=== PATIENT | female | born 1975 | race Caucasian/White ===

== ENCOUNTER 2024-07-07 14:11 | Outpatient (AMB) | payer OTHER, SELFPAY ==
--- NOTE | 2024-07-07 14:42 | A.OFFPC_ITS ---
Vital Signs 07/07/24 14:54 Height 5 ft 4 in Weight 277 lb BMI 47.5 BP 120/70 Blood Pressure Location Rt brachial Position Sitting Respiration 16 Pulse 98 Pulse Source Pulse Oximeter Temp 97.7 F Temp Source Tympanic Pulse Oximetry (%) 95 Oxygen Delivery Method Room Air Intake Visit Reasons: REGISTER OF WILLS-Physical Exam Intake Note: establish care Allergies No Known Allergies Allergy (Verified 07/07/24 14:44) Tobacco use date assessed: 07/07/24 Dental Screening Dental Screen Date: 07/07/24 Did you have a dental visit in the last 12 months?: Yes Did you have a dental problem in the last 6 months where you did not have access to dental care?: No Was dental information given to patient?: Patient has dentist HPI HPI Comments History of Present Illness Details This is a 48-year-old female with a past medical history of type 2 diabetes, melanoma, hypertension, hyperlipidemia and hypothyroidism presenting for follow up. She transferred from [facility]. Type 2 diabetes-this was diagnosed in 2013. Her most recent hemoglobin A1c was around 7.1% she says. She was evaluated by endocrinology. She met with the paraeducator. She has microalbuminuria. She is on an EAMON inhibitor. Her current regimen is Farxiga 10 mg, glipizide XL 10 mg twice daily, metformin 1000 mg twice daily and Ozempic once weekly, but she wants to switch back to Mounjaro. She was switched to Ozempic because it was not available over the summer. She feels her blood sugars and weight loss for better on Mounjaro. Hypothyroidism-taking levothyroxine 50 mg once daily. Hypertension-taking lisinopril 30 mg daily. Hydrochlorothiazide discontinued due to hypotension and hypercalcemia. Hyperlipidemia-taking Crestor 40 mg daily. ROS: Constitutional: No unexplained weight loss, fever, chills, fatigue or night sweats. Respiratory: No shortness of breath, cough or sputum production. Cardiovascular: No chest pain, chest pressure or chest discomfort. No pa lpitations or pedal edema. Gastrointestinal: No anorexia, nausea, vomiting or diarrhea. No abdominal pain or blood in stool. Neurologic: No headache, dizziness, syncope Endocrine: No cold or heat intolerance. No polyuria or polydipsia. Physical exam: Constitutional: Alert, in no distress. Respiratory: Clear to auscultation. Cardiovascular: S1 S2 regular. No murmurs Extremities: Warm and well perfused. No clubbing, cyanosis or edema Psychiatric: Normal mood and affect [facility] Medical History (Updated 07/08/24 @ 09:22 by JOEL Mendoza) Hypothyroidism Morbid obesity Microalbuminuria Essential hypertension Mixed hyperlipidemia History of melanoma Hepatic steatosis Screening for cardiovascular condition Type 2 diabetes mellitus Surgical History (Updated 07/08/24 @ 09:17 by JOEL Mendoza) History of melanoma excision Family History (Updated 07/08/24 @ 09:18 by JOEL Mendoza) Maternal Grandfather Lung cancer Mother Type 2 diabetes mellitus Social History (Updated 07/07/24 @ 14:50 by Huong Kraft MA) Housing: House Patient Tobacco Use Status: Never used Tobacco e-Cigarette/Vaping Use: Never Used Second Hand Smoke Exposure: No service: No Current occupational status: employed 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 1. Little interest or pleasure in doing things: not at all 2. Feeling down, depressed, or hopeless: not at all 3. Trouble falling or staying asleep, or sleeping too much: not at all 4. Feeling tired or having little energy: several days 5. Poor appetite or overeating: not at all 6. Feeling bad about yourself - or that you are a failure or have let yourself or your family down: not at all 7. Trouble concentrating on things, such as reading the newspaper or watching television: not at all 8. Moving or speaking so slowly that other people could have noticed. Or the opposite - being so fidgety or restless that you have been moving around a lot more than usual: not at all 9. Thoughts that you would be better off or of hurting yourself in some way: not at all Total score: 1 Depression Screening Interpretation: Negative Depression Screening Done: Yes 48723 - PHQ-9 Billing: Yes Source: Developed by Drs. Humphrey Hunter, Swati Morgan, Haja Ellis and colleagues, with an educational mora from [employer]. Thrive Questionnaire Date Thrive assessed: 07/07/24 I am a: Patient What is your living situation today?: I have a steady place to live Within the past 12 months, did the food you bought not last and you didn't have the money to get more?: Never true Within the past 12 months, did you worry whether your food would run out before you got money to buy more?: Never true Do you have trouble paying for medicines?: No Do you have trouble getting transportation to medical appointments?: No Do you have trouble paying your heating and electricity bill?: No Do you have trouble taking care of your child, family member or friend?: No Do you have trouble with day-to-day activities such as bathing, preparing meals, shopping, managing finances, etc.?: No Are you currently unemployed and looking for a job?: No Are you interested in more education?: No Please select the resources that you would like help with: None Currently or been in a relationship where the following occur: No concerns reported THRIVE Score: 0 AUDIT C Alcohol Use Questionnaire (AUDIT-C) 1. How often do you have a drink containing alcohol?: Never 3. How often do you have six or more drinks on one occasion?: Never Total Score: 0 Score Reviewed/Action Taken: Yes YOUSUF-7 AMB Questionnaire YOUSUF-7 Date YOUSUF - 7 assessed: 07/07/24 Feeling nervous, anxious, or on edge: 0 = Not at all Not being able to stop or control worryin = Not at all Worrying too much about different things: 0 = Not at all Trouble relaxin = Not at all Being so restless that it is hard to sit still: 0 = Not at all Becoming easily annoyed or irritable: 0 = Not at all Feeling afraid as if something awful might happen: 0 = Not at all Total YOUSUF-7 score (0-4 normal; 5-9 mild; 10-14 moderate; 15-21 severe): 0 Source: Developed by Drs. Humphrey Hunter, Swati Morgan, Haja Ellis and colleagues, with an educational mora from [employer]. YOUSUF-7 Assessment Billing YOUSUF-7 Assessment Tool: YOUSUF-7 Assessment [id number] Physical exam (Primary Care) Vital Signs: Last Vital Signs Temp 97.7 F 07/07/24 14:54 Pulse 98 07/07/24 14:54 Resp 16 07/07/24 14:54 BP 120/70 07/07/24 14:54 Pulse Ox 95 07/07/24 14:54 Oxygen Delivery Method Room Air 07/07/24 14:54 BMI result Body Mass Index 47.5 Tobacco/Smoking Status: Tobacco use Status Tobacco use date assessed 07/07/24 07/07/24 14:57 Patient Tobacco Use Status Never used Tobacco 07/07/24 14:57 e-Cigarette/Vaping Use Never Used 07/07/24 14:57 PHQ-9: PHQ-9 Score PHQ-9: Total score 1 07/07/24 15:32 Depression Screening Interpretation: Negative Thrive Assessment: Date of Thrive Assessment Date Thrive assessed 07/07/24 07/07/24 14:57 Currently or been in a relationship where the following occur: No concerns reported Assessment and Plan Assessment & Plan (1) Type 2 diabetes mellitus: Code(s): E11.9 - Type 2 diabetes mellitus without complications Qualifiers: Diabetes mellitus superintendent terminal insulin use: without care home use Diabetes mellitus complication status: with kidney complications Diabetes mellitus complication detail: with diabetic microalbuminuria Qualified Code(s): E11.29 - Type 2 diabetes mellitus with other diabetic kidney complication; R80.9 - Protei watson, unspecified (2) Microalbuminuria: Code(s): R80.9 - Proteinuria, unspecified (3) Essential hypertension: Code(s): I10 - Essential (primary) hypertension (4) Mixed hyperlipidemia: Code(s): E78.2 - Mixed hyperlipidemia (5) Morbid obesity: Code(s): E66.01 - Morbid (severe) obesity due to excess calories (6) Hypothyroidism: Code(s): E03.9 - Hypothyroidism, unspecified Qualifiers: Hypothyroidism type: due to [place]'s thyroiditis Qualified Code(s): E06.3 - Autoimmune thyroiditis Plan Type 2 diabetes Discontinue Ozempic and switch back to Mounjaro. She will start at 5 mg weekly and titrate again based on response and tolerability. Check hemoglobin A1c. Continue efforts at lifestyle modifications. Continue other medications. Microalbuminuria Discussed importance of diabetic control and managing hypertension. Continue EAMON inhibitor. Hypertension Controlled. Continue current regimen. Recommended low-sodium diet and avoidance of caffeine. Weight loss encouraged. Hyperlipidemia Check fasting lipid profile. Continue rosuvastatin 40 mg. Hypothyroidism Continue levothyroxine. Check TSH. Morbid obesity Lifestyle modifications reviewed in detail. Switching to Mounjaro. Patient had more weight loss with this medication. Follow up in 4 months for CPE. Orders: Orders Lipid Panel 07/07/24 E11.9 - Type 2 diabetes mellitus without complications, Z13.6 - Encounter for screening for cardiovascular disorders Hemoglobin A1c 07/07/24 E11.9 - Type 2 diabetes mellitus without complications, Z13.6 - Encounter for screening for cardiovascular disorders Comprehensive Met. Panel Today E11.9 - Type 2 diabetes mellitus without complications, I10 - Essential (primary) hypertension, K76.0 - Fatty (change of) liver, not elsewhere classified TSH reflex Free T4 07/07/24 E11.9 - Type 2 diabetes mellitus without compli cations, E66.9 - Obesity, unspecified, Z13.6 - Encounter for screening for cardiovascular disorders Referrals HEAD LOFT WORKER Referral Z01.419 - Encounter for gynecological examination (general) (routine) without abnormal findings Medications: New tirzepatide (Mounjaro) 5 mg (0.5 mL) subcut QWEEK 2 mL 0RF levothyroxine (Synthroid) 50 mcg PO DAILY 90 tabs 3RF lisinopril 30 mg PO DAILY 90 tabs 3RF rosuvastatin 40 mg PO DAILY 90 days 90 tabs 3RF dapagliflozin propanediol (Farxiga) 10 mg PO DAILY 90 tabs 3RF glipizide ER 10 mg PO BID 90 tabs 3RF metformin 1,000 mg PO BID 90 days 180 tabs 3RF Coding Level of Care Code Est Pt Level 4 (65670) Complex EM visit Add On G2211 Diagnoses Type 2 diabetes mellitus with diabetic microalbuminuria, without long-term current use of insulin E11.29; R80.9 Diabetes mellitus care home insulin use: without superintendent terminal use Diabetes mellitus complication status: with kidney complications Diabetes mellitus complication detail: with diabetic microalbuminuria Microalbuminuria R80.9 Essential hypertension I10 Mixed hyperlipidemia E78.2 Morbid obesity E66.01 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
[2024-07-07 14:54] VITALS: BP 120/70; PULSE 98; RESP 16; TEMP 36.5; O2SAT 95; BMI 47.5
== END 2024-07-07 15:36 | disposition home or self-care (01) ==
PROVIDERS: Visit Provider Physician Assistant Medical
DX: E11.29 Type 2 diabetes mellitus with other diabetic kidney complication (principal); E66.01 Morbid (severe) obesity due to excess calories; Z68.42 Body mass index [BMI] 45.0-49.9, adult; R80.9 Proteinuria, unspecified; I10 Essential (primary) hypertension; E78.2 Mixed hyperlipidemia; E06.3 Autoimmune thyroiditis
CPT/HCPCS: 99214

== ENCOUNTER 2024-10-28 08:28 | Outpatient (REF) | payer OTHER, SELFPAY ==
[2024-10-28 11:38] LABS: Estimated Average Glucose 200 mg/dL; Hemoglobin A1C 263.1317 umol/L; Hemoglobin A1c % 8.6 % (<6.0); Total Hemoglobin (HGBA1C) 3728.2816 umol/L
[2024-10-28 12:19] LABS: Alanine Aminotransferase 27 U/L (0-31); Albumin Level 4.2 g/dL (3.5-5.0); Alkaline Phosphatase 64 U/L (39-117); Anion Gap 13 (12-20); Aspartate Amino Transferase 27 U/L (5-31); Bilirubin Total 0.4 mg/dL (0.0-1.0); Blood Urea Nitrogen 17 mg/dL (9-16); Calcium 10.1 mg/dL (8.4-10.2); Carbon Dioxide 25 mmol/L (22-29); Chloride 103 mmol/L (96-108); Cholesterol 177 mg/dL (<200); Estimated Glomerular Filt Rate > 60; Glucose Random 204 mg/dL (60-115); HDL Cholesterol 41 mg/dL (>40); LDL Cholesterol Calculated 71 mg/dL (<100); Potassium 4.3 mmol/L (3.3-5.1); Sodium 137 mmol/L (135-145); TSH reflex Free T4 3.06 uIU/mL (0.32-4.0); Total Protein 7.6 g/dL (6.5-8.0); Triglycerides 325 mg/dL (<150)
== END 2024-10-28 08:29 | disposition home or self-care (01) ==
LOC: HO.WFDLDS 08:28
PROVIDERS: Visit Provider Physician Assistant Medical
DX: E11.9 Type 2 diabetes mellitus without complications (principal); Z13.6 Encounter for screening for cardiovascular disorders; E66.9 Obesity, unspecified; K76.0 Fatty (change of) liver, not elsewhere classified; I10 Essential (primary) hypertension
CPT/HCPCS: 36415; 80053; 80061; 83036; 84443

== ENCOUNTER 2024-11-03 15:29 | Outpatient (AMB) | payer OTHER, SELFPAY ==
--- NOTE | 2024-11-03 15:51 | A.OFFPC_ITS ---
Vital Signs 11/03/24 15:59 Height 5 ft 4 in Weight 278 lb 1 oz BMI 47.7 BP 127/83 Blood Pressure Location Rt brachial Position Sitting Pulse 91 Pulse Source Pulse Oximeter Pulse Oximetry (%) 92 Oxygen Delivery Method Room Air Intake Visit Reasons: cpe Intake Note: Physical Coin Machine Assembler Required: No Allergies No Known Allergies Allergy (Verified 11/03/24 15:51) Tobacco use date assessed: 07/07/24 Dental Screening Dental Screen Date: 07/07/24 HPI HPI Comments History of Present Illness Details This is a 49-year-old female with a past medical history of type 2 diabetes, melanoma, hypertension, hyperlipidemia and hypothyroidism presenting for a physical exam. Type 2 diabetes-this was diagnosed in 2013. Her hemoglobin A1c recently is 8.6%. She was evaluated by endocrinology. She met with the s iron worker. She has microalbuminuria. She is on an EAMON inhibitor. Her current regimen is F arxiga 10 mg, glipizide XL 10 mg twice daily, metformin 1000 mg twice daily and Mounjaro which we have been titrating. She wants to increase from 12.5-15 mg weekly. She denies side effects. Hypothyroidism-taking levothyroxine 50 mg once daily. Recent TSH normal. Hypertension-taking lisinopril 30 mg daily. Hydrochlorothiazide discontinued due to hypotension and hypercalcemia. Hyperlipidemia-taking Crestor 40 mg daily. LDL at goal. Triglycerides elevated at 335 which makes sense with elevation in A1c. She has not had her screening colonoscopy. She is referred to [facility] at her request for this. She has an appointment for her gynecological exam on 12/12/[address] Estrada. She accepts referral for mammogram at [facility]. She goes to [facility] for skin surveillance. No recurrence of skin cancer to date. She is up-to-date with the flu and COVID vaccines through her pharmacy. She received the PPSV23 vaccine in 2013. Tdap is overdue and is administered today. ROS: Constitutional: No unexplained weight loss, fever, chills, fatigue or night sweats. Eyes: No vision changes, blurry vision, double vision, eye pain, eye redness, eye discharge. ENT: No hearing loss, sneezing, congestion, runny nose or sore throat. Respiratory: No shortness of breath, cough or sputum production. Cardiovascular: No chest pain, chest pressure or chest discomfort. No palpitations or pedal edema. Gastrointestinal: No anorexia, nausea, vomiting or diarrhea. No abdominal pain or blood in stool. Genitourinary: No dysuria, hematuria, urinary frequency. Neurologic: No headache, dizziness, syncope, unilateral weakness, ataxia, numbness or tingling in the extremities. Musculoskeletal: No muscle pain, back pain, joint pain or swelling. Hematologic/Lymphatics: No bleeding or bruising. No painful lymph nodes. Skin: No rash, no changing moles or new lesions Endocrine: No cold or heat intolerance. No polyuria or polydipsia. Psychiatric: No depression or anxiety. No SI/HI. Physical exam: Constitutional: Alert, in no distress. Head: Normocephalic. Eyes: Pupils are equal, round and reactive to light. Extraocular muscles intact. Ear, Nose and Throat: Canals clear. TMs normal. Normal nasal mucosa. No nasal discharge. No oral lesions. Neck: Supple, Full range of motion. No lymphadenopathy. No palpable thyroid masses. Respiratory: Clear to auscultation. Cardiovascular: S1 S2 regular. No murmurs. Gastrointestinal: Abdomen soft, non-tender, non-distended. Normal bowel sounds. No palpable masses. Neurologic: No focal neurological deficits.Moves all extremities spontaneously. Sensation intact bilaterally. Skin: No rashes or lesions. Musculoskeletal: No gross deformities. Normal range of motion. Extremities: Warm and well perfused. No clubbing, cyanosis or edema. Psychiatric: Normal mood and affect [facility] Medical History (Updated 07/08/24 @ 09:22 by JOEL Mendoza) Hypothyroidism Morbid obesity Microalbuminuria Essential hypertension Mixed hyperlipidemia History of melanoma Hepatic steatosis Screening for cardiovascular condition Type 2 diabetes mellitus Surgical History (Updated 07/08/24 @ 09:17 by JOEL Mendoza) History of melanoma excision Family History (Updated 07/08/24 @ 09:18 by JOEL Mendoza) Maternal Grandfather Lung cancer Mother Type 2 diabetes mellitus Social History (Updated 07/07/24 @ 14:50 by RAEGAN Saleh) Housing: House Patient Tobacco Use Status: Never used Tobacco e-Cigarette/Vaping Use: Never Used Second Hand Smoke Exposure: No service: No Current occupational status: employed 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 1. Little interest or pleasure in doing things: not at all 2. Feeling down, depressed, or hopeless: not at all 3. Trouble falling or staying asleep, or sleeping too much: not at all 4. Feeling tired or having little energy: not at all 5. Poor appetite or overeating: not at all 6. Feeling bad about yourself - or that you are a failure or have let yourself or your family down: not at all 7. Trouble concentrating on things, such as reading the newspaper or watching television: not at all 8. Moving or speaking so slowly that other people could have noticed. Or the opposite - being so fidgety or restless that you have been moving around a lot more than usual: not at all 9. Thoughts that you would be better off or of hurting yourself in some way: not at all Total score: 0 Source: Developed by Drs. Humphrey Hunter, Swati Morgan, Haja Ellis and colleagues, with an educational mora from [employer]. Thrive Questionnaire Date Thrive assessed: 07/07/24 I am a: Patient What is your living situation today?: I have a steady place to live Within the past 12 months, did the food you bought not last and you didn't have the money to get more?: Never true Within the past 12 months, did you worry whether your food would run out before you got money to buy more?: Never true Do you have trouble paying for medicines?: No Do you have trouble getting transportation to medical appointments?: No Do you have trouble paying your heating and electricity bill?: No Do you have trouble taking care of your child, family member or friend?: No Do you have trouble with day-to-day activities such as bathing, preparing meals, shopping, managing finances, etc.?: No Are you currently unemployed and looking for a job?: No Are you interested in more education?: No Please select the resources that you would like help with: None Currently or been in a relationship where the following occur: No concerns reported THRIVE Score: 0 AUDIT C Alcohol Use Questionnaire (AUDIT-C) 1. How often do you have a drink containing alcohol?: Never 2. How many drinks containing alcohol do you have on a typical day when you are drinking?: 1 or 2 3. How often do you have six or more drinks on one occasion?: Never Total Score: 0 YOUSUF-7 AMB Questionnaire YOUSUF-7 Date YOUSUF - 7 assessed: 07/07/24 Feeling nervous, anxious, or on edge: 0 = Not at all Not being able to stop or control worryin = Not at all Worrying too much about different things: 0 = Not at all Trouble relaxin = Not at all Being so restless that it is hard to sit still: 0 = Not at all Becoming easily annoyed or irritable: 0 = Not at all Feeling afraid as if something awful might happen: 0 = Not at all Total YOUSUF-7 score (0-4 normal; 5-9 mild; 10-14 moderate; 15-21 severe): 0 Source: Developed by Drs. Humphrey Hunter, Swati Morgan, Haja Ellis and colleagues, with an educational mora from [employer]. Physical exam (Primary Care) Vital Signs: Last Vital Signs Pulse 91 11/03/24 15:59 BP 127/83 11/03/24 15:59 Pulse Ox 92 11/03/24 15:59 Oxygen Delivery Method Room Air 11/03/24 15:59 BMI result Body Mass Index 47.7 Tobacco/Smoking Status: Tobacco use Status Tobacco use date assessed 07/07/24 11/03/24 15:52 Patient Tobacco Use Status Never used Tobacco 11/03/24 15:52 e-Cigarette/Vaping Use Never Used 11/03/24 15:52 PHQ-9: PHQ-9 Score PHQ-9: Total score 0 11/03/24 16:23 Thrive Assessment: Date of Thrive Assessment Date Thrive assessed 07/07/24 11/03/24 15:52 Currently or been in a relationship where the following occur: No concerns reported Immunizations Boostrix Tdap 2.5 Lf unit-8 mcg-5 Lf/0.5 mL intramuscular syringe Performing Provider: JOEL Mendoza Performing Location: [facility] Administered by: Olive Yanes CMA on 11/03/24 16:53 Dose Route Admin Location Dispensed Lot Number Expiration Date [employer] 0.5 mL IM Left Deltoid 0.5 mL [id number] 01/14/27 29516-859-88 [employer] VIS Given Date VIS Provided VIS Publication Date 11/03/24 Single Vaccine 21 Eligibility Eligibility Date Funding Source Not [facility] Eligible 11/03/24 Private Coding Level of Care Code Est Pt Prev Care 40-64y(28486) Diagnoses Routine physical examination Z00.00 Mixed hyperlipidemia E78.2 Type 2 diabetes mellitus with diabetic microalbuminuria, without long-term current use of insulin E11.29; R80.9 Diabetes mellitus correction insulin use: without parts counterman use Diabetes mellitus complication status: with kidney complications Diabetes mellitus complication detail: with diabetic microalbuminuria Assessment & Plan Assessment & Plan (1) Routine physical examination: Code(s): Z00.00 - Encounter for general adult medical examination without abnormal findings (2) Mixed hyperlipidemia: Code(s): E78.2 - Mixed hyperlipidemia Category: Medical (3) Type 2 diabetes mellitus: Code(s): E11.9 - Type 2 diabetes mellitus without complications Category: Medical Qualifiers: Diabetes mellitus parts counterman insulin use: without correction use Diabetes mellitus complication status: with kidney complications Diabetes mellitus complication detail: with diabetic microalbuminuria Qualified Code(s): E11.29 - Type 2 diabetes mellitus with other diabetic kidney complication; R80.9 - Proteinuria, unspecified Plan Patient is seen today for a routine physical. As part of this visit we reviewed the following issues, which are considered and essential part of preventative health in this age group: - Breast Cancer screening - Annual Axle Polisher exam - Screening for colon cancer - Blood pressure screening - Cholesterol screening - Osteoporosis prevention including calcium/vitamin D intake, weight bearing exercise & smoking cessation - Nutritional and exercise counseling - Counseling of injury prevention including fire prevention, smoke alarms and seat belt usage - Screening for depression - Recommendations about immunizations - Recommendation of an eye exam - Screening for substance abuse Increase Mounjaro to 15 mg weekly. Continue all other medications. Follow up in 3 months for re-evaluation with labs. Orders: Orders MM screening mammo BI Today Z12.31 - Encounter for screening mammogram for malignant neoplasm of breast Hemoglobin A1c 3 Months E11.29 - Type 2 diabetes mellitus with other diabetic kidney complication, E11.9 - Type 2 diabetes mellitus without complications, R80.9 - Proteinuria, unspecified Lipid Panel 3 Months E11.29 - Type 2 diabetes mellitus with other diabetic k idney complication, E78.5 - Hyperlipidemia, unspecified, R80.9 - Proteinuria, unspecified TDaP Immunization Today Z23 - Encounter for immunization Referrals Gastroenterology Referral Z12.11 - Encounter for screening for malignant neoplasm of colon Medications: New tirzepatide (Mounjaro) 15 mg (0.5 mL) subcut QWEEK 2 mL 5RF Discontinued tirzepatide (Mounjaro) Discontinued Reason: Doctor's Order 12.5 mg (0.5 mL) subcut QWEEK 2 mL 0RF
[2024-11-03 15:59] VITALS: BP 127/83; PULSE 91; O2SAT 92; BMI 47.7
== END 2024-11-03 16:53 | disposition home or self-care (01) ==
PROVIDERS: Visit Provider Physician Assistant Medical
DX: Z00.00 Encounter for general adult medical examination without abnormal findings (principal); E78.2 Mixed hyperlipidemia; E11.29 Type 2 diabetes mellitus with other diabetic kidney complication; R80.9 Proteinuria, unspecified; Z23 Encounter for immunization

== ENCOUNTER → 2024-11-03 15:29 | Outpatient (BNVA) | payer OTHER, SELFPAY | PROVIDERS: Visit Provider Physician Assistant Medical | DX: Z00.00 Encounter for general adult medical examination without abnormal findings (principal); Z23 Encounter for immunization; E78.2 Mixed hyperlipidemia; E11.29 Type 2 diabetes mellitus with other diabetic kidney complication; R80.9 Proteinuria, unspecified | CPT/HCPCS: 90471; 90715; 96127 ==

== ENCOUNTER 2024-11-28 07:44 | Outpatient (REF) | payer OTHER, SELFPAY | END 2024-11-28 07:45 | disposition home or self-care (01) | LOC: HO.MAMMO 07:44 | PROVIDERS: PCP Physician Assistant Medical; Visit Provider Physician Assistant Medical | DX: Z12.31 Encounter for screening mammogram for malignant neoplasm of breast (principal) | CPT/HCPCS: 77063; 77067 ==

== ENCOUNTER → 2024-11-28 08:00 | Outpatient (BNV) | payer OTHER, SELFPAY | PROVIDERS: PCP Physician Assistant Medical; Visit Provider Internal Medicine | DX: Z12.31 Encounter for screening mammogram for malignant neoplasm of breast (principal) | CPT/HCPCS: 77063; 77067 ==

== ENCOUNTER → 2024-12-03 12:33 | Outpatient (BNV) | payer OTHER, SELFPAY | PROVIDERS: PCP Physician Assistant Medical; Visit Provider Internal Medicine Cardiovascular Disease | DX: I42.2 Other hypertrophic cardiomyopathy (principal); I51.89 Other ill-defined heart diseases | CPT/HCPCS: 93306 ==

== ENCOUNTER 2024-12-22 13:56 | Outpatient (REF) | payer OTHER, SELFPAY ==
[2024-12-22 17:40] LABS: Influenza A PCR POSITIVE (Negative); Influenza B PCR NEGATIVE (Negative); Resp Syncy Virus RNA Qual PCR NEGATIVE (Negative); SARS COV2 PCR INHOUSE NEGATIVE (Negative)
== END 2024-12-22 13:57 | disposition home or self-care (01) ==
LOC: HO.LNP 13:56
PROVIDERS: PCP Physician Assistant Medical; Visit Provider Nurse Practitioner Family
DX: J06.9 Acute upper respiratory infection, unspecified (principal); R05.1 Acute cough
CPT/HCPCS: 0241U

== ENCOUNTER 2024-12-22 13:56 | Outpatient (AMB) | payer OTHER, SELFPAY ==
[2024-12-22 14:10] VITALS: BP 128/78; PULSE 92; TEMP 36.8; O2SAT 93
--- NOTE | 2024-12-22 14:10 | AM.OFFWIN_ITS ---
Intake Vital Signs 12/22/24 14:10 Height 5 ft 4 in BP 128/78 Blood Pressure Location Lt brachial Position Sitting Pulse 92 Pulse Source Pulse Oximeter Temp 98.2 F Temp Source Oral Pulse Oximetry (%) 93 Intake Visit Reasons: EP Bronchitis? Patient Tobacco Use Status: Never used Tobacco Allergies No Known Allergies Allergy (Verified 12/22/24 14:10) Do you need a note to return to daycare/school/sports/work: Yes HPI HPI Comments History of Present Illness Details 49 y/o female patient who [facility] with c/o URI Symptoms since yesterday. Pt reports coughing, chest tightness and chest congestion. [facility] Medical History (Updated 12/22/24 @ 14:32 by Jeanne Wagner NP) Acute respiratory disease Grade I diastolic dysfunction Abnormal echocardiogram Hypothyroidism Morbid obesity Microalbuminuria Essential hypertension Mixed hyperlipidemia History of melanoma Hepatic steatosis Screening for cardiovascular condition Type 2 diabetes mellitus Surgical History (Updated 07/08/24 @ 09:17 by JOEL Mendoza) History of melanoma excision Family History (Updated 07/08/24 @ 09:18 by JOEL Mendoza) Maternal Grandfather Lung cancer Mother Type 2 diabetes mellitus Social History (Updated 07/07/24 @ 14:50 by Huong Kraft [facility] Housing: House Patient Tobacco Use Status: Never used Tobacco e-Cigarette/Vaping Use: Never Used Second Hand Smoke Exposure: No service: No Current occupational status: employed 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 Current occupational exposures/hazards: No Cognitive needs: No Hearing needs: No Vision needs: No Review of Systems Const All systems reviewed & are unremarkable except as noted in HPI and below Physical Exam Vital Signs: Last Vital Signs Temp 98.2 F 12/22/24 14:10 Pulse 92 12/22/24 14:10 BP 128/78 12/22/24 14:10 Pulse Ox 93 12/22/24 14:10 Const General: cooperative and no acute distress Nutritional Appearance: obese Orientation/consciousness: patient oriented x3 HEENT Head: Yes normocephalic Ears: external ears normal and TM abnormal obstructed by cerumen General nose exam: Nasal discharge present Face and sinus: Yes sinuses nontender Mouth: moist mucous membranes Throat: Yes uvula midline Resp Effort & Inspection: normal respiratory effort, able to speak in complete sentences, no audible wheezes and no cough Auscultation: clear to auscultation bilaterally, no crackles, no rales, no rhonchi and no wheezes Cardio Heart sounds: S1 normal heart sound present and S2 normal heart sound present Neuro General: patient oriented x3 Assessment & Plan Assessment & Plan (1) Acute respiratory disease: Code(s): J06.9 - Acute upper respiratory infection, unspecified Plan: Ordered SARs OTC cough/chest remedies Rest and hydrate well with warm fluids. (2) Cough: Code(s): R05.9 - Cough, unspecified Qualifiers: Cough type: acute Qualified Code(s): R05.1 - Acute cough Plan: Ordered SARs OTC cough/chest remedies Rest and hydrate well with warm fluids. Orders: Orders SARS-CoV2/FLU/RSV Today J06.9 - Acute upper respiratory infection, unspecified Medications: New benzonatate 100 mg PO TID 90 caps 0RF cough R05.1 - Acute cough Coding Level of Care Code Est Pt Level 4 (50492) Diagnoses Acute respiratory disease J06.9 Acute cough R05.1 Cough type: acute Time Spent (min) 20
--- OUTSIDE RECORDS SUMMARY | 2024-12-22 16:00 | XMS_ITS | Patient Health Record ---
Author Organization [employer] [facility] Address [address] [place] [address] Care Team Providers Care Stop Attacher Name Role Phone JAY RODRIGES PA-C Primary Care Provider Silva Engle Unavailable [phone] Allergies No Known Allergies Results Component Value Reference Range Notes PDF Report Reviewed date:12/16/2024 01:20:08 PM Interpretation: Performing Lab:[facility], [address], [address], [place], Phone - [phone], [facility] Notes/Report: Clinical Information:VAG/CERV [id number] LMP / Prev Treat...[id number] Dates / Results....2022 No. of containers..01 ThinPrep Vial [id number] IGP No Culture 30 Plus Reviewed date:12/16/2024 01:20:24 PM Interpretation: Performing Lab:[facility], [address], [address], [place], Phone - [phone], Director - [facility] Notes/Report: Clinical Information:VAG/CERV [id number] LMP / Prev Treat...[id number] Dates / Results....2022 No. of containers..01 ThinPrep Vial DIAGNOSIS: NEGATIVE FOR INTRAEPITHELIAL LESION OR MALIGNANCY. PREDOMINANCE OF COCCOBACILLI CONSISTENT WITH SHIFT IN VAGINAL GRISELDA IS PRESENT. Specimen adequacy: Satisfact ory for evaluation. No endocervical component is identified. Clinician provided ICD10: Z0 1.419 Performed by: Christopher pisano, Cavity Pump Operator ([facility]) . . Note: The Pap smear is a screening test designed to aid in the detection of premalignant and malignant conditions of the uterine cervix. It is not a diagnostic procedure and should not be used as the sole means of detecting cervical cancer. Both false-positive and false-negative reports do occur. . Test Methodology: This liquid based ThinPrep(R) pap test was screened with the use of an image guided system. HPV Aptima Negative Negative This nucleic acid amplification test detects fourteen high-risk HPV types (16,18,31,33,35,39,45,51,52,56,58 ,59,66,68) without differentiation. HPV Genotype Reflex Criteria not met, HPV Genotype not performed. Urinalysis Reviewed date:12/11/2024 04:06:49 PM Interpretation: Performing Lab: Notes/Report: PH 6 PROTEIN Neg GLUCOSE Neg BLOOD neg Reason For Referral No Information Medications Medication SIG (Take, Route, Frequency, Duration) Notes Start Date End Date Status metFORMIN HCl 1000 MG 1 tablet with a me al Orally Once a day Active Farxiga 10 MG 1 tablet Orally Once a day Active Lisinopril 40 MG 1 tablet Orally Once a day Active Levothyroxine Sodium 50 MCG 1 tablet in the morning on an empty stomach Orally Once a day Active glipiZIDE 10 MG 1 tablet 30 minutes before breakfast Orally Once a day Active Rosuvastatin Calcium 40 MG 1 tablet Oral ly Once a day Active miSOPROStol 200 MCG 2 TABLETS Orally NIG HT BEFORE PROCEDURE for 1 days 12/11/2024 Active Diflucan 150 MG 1 tablet Orally EVER Y 3 DAYS for 10 days 12/11/2024 Active Clotrimazole-Betamethasone 1-0.05 % 1 application to affected area Externally TWICE A DAY FOR 1 TO 2 WEEKS for 14 days 12/11/2024 Active Social History Tobacco Use: Social History Observation Description Date Details (start date - stop date) Never Smoker NA - NA Sexual History Question Answer Notes Had sex in the past 12 months (vaginal, oral, or anal)? Yes with Men only AUDIT-C (Standard) Question Answer Notes Did you have a drink containing alcohol in the p ast year? No Points 0 Interpretation Negative Tobacco Control (Standard) Question Answer Notes Tobacco use: Nonsmoker Problems Problem Type SNOMED Code ICD Code Onset Dates Problem Status W/U Status Risk Notes Problem Essential hypertension (68794552) Essential (primary) hypertension (I10) Active confirmed Problem Malignant melanoma of skin (41858253) Malignant melanoma of skin, unspecified (C43.9) Active confirmed Problem Morbid obesity (disorder) (063240070) Morbid (severe) obesity due to excess calories (E66.01) Active confirmed Problem Abnormal vaginal bleeding (015444871) Other specified abnormal uterine and vaginal bleeding (N93.8) Active confirmed Vital Signs Temperature 98.0 degrees Fahrenheit 12/11/2024 Blood pressure diastolic 78 mm Hg 12/11/2024 Height 64 in 12/11/2024 Blood pressure systolic 126 mm Hg 12/11/2024 Weight 275 lbs 12/11/2024 BMI 47.2 kg/m2 12/11/2024 Encounters Encounter Location Date Provider Diagnosis [address] [place] [address] 12/11/2024 Silva Estrada Encounter for gynecological examination (general) (routine) without abnormal findings Z01.419 ; Encounter for screening mammogram for malignant neoplasm of breast Z12.31 ; Other specified abnormal uterine and vaginal bleeding N93.8 ; Acute candidiasis of vulva and vagina B37.31 and Morbid (severe) obesity due to excess calories E66.01 Assessments Encounter Date Diagnosis (ICD Code) Assessment Notes Treatment Notes Treatment Clinical Notes Section Notes 12/11/2024 Encounter for gynecological examination (general) (routine) without abnormal findings (ICD-10 - Z01.419) PAP TEST WITH HPV TYPING WAS OBTAINED. 12/11/2024 Encounter for screening mammogram for malignant neoplasm of breast (ICD-10 - Z12.31) REGULAR MAMMOGRAMS AND SBE'S WERE RECOMMENDED. 12/11/2024 Other specified abnormal uterine and vaginal bleeding (ICD-10 - N93.8) DISCUSSED ABNORMAL UTERINE BLEEDING AND NEED FOR FURTHER EVALUATION. DISCUSSED HSONO'S AND EMB'S. SCHEDULE THESE PROCEDURES. MISO/MOTRIN 12/11/2024 Acute candidiasis of vulva and vagina (ICD-10 - B37.31) DISCUSSED FINDINGS, CHRONIC YEAST MAY BE DUE TO UNCONTROLLED DM TYPE 2. KEEP AREA CLEAN AND DRY. LOOSE WHITE COTTON UNDERWEAR. AVOID LEGGINGS AND TIGHT PANTS. RX'S FOR LOTRISONE CREAM AND DIFLUCAN WITH DETAILED INSTRUCTIONS WERE GIVEN. 12/11/2024 Morbid (severe) obesity due to excess calories (ICD-10 - E66.01) DISCUSSED NEGATIVE EFFECTS OF OBESITY ON HER HEALTH. CONTINUE WEGOVY. ADEQUATE EXERCISE AND REASONABLE DIET. Plan Of Treatment Pending Test Test Name Order Date MM Digital Mammo Screening 12/11/2024 Next Appt Details Provider Name:Silva eastman, 01/09/2025 08:30:00 AM, [facility], [address], [place], [address], Provider Name:Silva eastman, 01/09/2025 08:40:00 AM, [email or web address], [facility] [address], [place], [address], Provider Name:Silva eastman, 12/16/2025 08:40:00 AM, [facility], [facility] [address], [place], [address], Insurance Providers Payer Name Payer Address Payer Phone Subscriber Number Group Number Insured Name Patient Relationship to Insured Coverage Start Date Coverage End Date [facility] [address] [place] [id number] [phone] [id number] [place] [place] Self - patient is the insured Medical (General) History Medical History History ICD Code Malignant melanoma of skin, unspecified C43.9 Essential (primary) hypertension I10 Disorder of thyroid, unspecified E07.9 Hospitalization History Reason Date(Month/Year) melanoma removal labia 1996
--- OUTSIDE RECORDS SUMMARY | 2024-12-22 16:01 | XMS_ITS ---
Author Organization [facility] Address [address] [place] [address] Care Team Providers Care Tip Finisher Name Role Phone JAY RODRIGES PA-C Primary Care Provider Silva Engle Unavailable [phone] Allergies No Known Allergies Results Component Value Reference Range Notes Urinalysis Reviewed date:12/11/2024 04:06:49 PM Interpretation: Performing Lab: Notes/Report: PH 6 PROTEIN Neg GLUCOSE Neg BLOOD neg [id number] IGP No Culture 30 Plus Reviewed date:12/16/2024 01:20:24 PM Interpretation: Performing Lab:[facility] [place], [address], [address], [place], Phone - [phone], Director - [facility] Notes/Report: Clinical Information:VAG/CERV [id number] LMP / Prev Treat...[id number]=[id number] Dates / Results....2022 No. of containers..01 ThinPrep Vial DIAGNOSIS: NEGATIVE FOR INTRAEPITHELIAL LESION OR MALIGNANCY. PREDOMINANCE OF COCCOBACILLI CONSISTENT WITH SHIFT IN VAGINAL GRISELDA IS PRESENT. Specimen adequacy: Satisfact ory for evaluation. No endocervical component is identified. Clinician provided ICD10: Z0 1.419 Performed by: Christopher pisano Medicaid Plan Compliance Director ([facility]) . . Note: The Pap smear [...] Criteria not met, HPV Genotype not performed. PDF Report Reviewed date:12/16/2024 01:20:08 PM Interpretation: Performing Lab:[facility] [place], [address], [address], [place], Phone - [phone], Director - [facility] Notes/Report: Clinical Information:VAG/CERV [id number] LMP / Prev Treat...MJL=[id number] Dates / Results....2022 No. of containers..01 ThinPrep Vial REASON FOR VISIT Annual PHP ENGINEER Physical, Annual PHP ENGINEER Physical 40-49 Medications Medication SIG (Take, Route, Frequency, Duration) Notes Start Date End Date Status Levothyroxine Sodium 50 MCG 1 tablet in the morning on an empty stomach Orally Once a day Active Rosuvastatin Calcium [...] 2 WEEKS for 14 days 12/11/2024 Active metFORMIN HCl 1000 MG 1 tablet with a me al Orally Once a day Active Farxiga 10 MG 1 tablet Orally Once a day Active Lisinopril 40 MG 1 tablet Orally Once a day Active glipiZIDE 10 MG 1 tablet 30 minutes before breakfast Orally Once a day Active Social History Tobacco Use: Social History [...] Problem Status W/U Status Risk Notes Problem Malignant melanoma of skin (40403451) Malignant melanoma of skin, unspecified (C43.9) Active confirmed Problem Essential hypertension (95029415) Essential (primary) hypertension (I10) Active confirmed Problem Morbid obesity (disorder) (804471931) Morbid (severe) obesity due to excess calories (E66.01) Active confirmed Problem Abnormal vaginal bleeding (447212021) Other specified abnormal uterine and vaginal bleeding (N93.8) Active confirmed Vital Signs Temperature 98.0 degrees Fahrenheit 12/11/19 25 Blood pressure systolic 126 mm Hg 12/11/19 25 Blood pressure diastolic 78 mm Hg 025 Height 64 in 12/11/2024 Weight 275 lbs 12/11/2024 BMI 47.2 kg/m2 12/11/2024 Encounters Encounter Location Date Provider Diagnosis [address] [address] 12/11/2024 Silva Estrada Encounter for gynecological examination [...] EXERCISE AND REASONABLE DIET. Plan Of Treatment Medication Medication Name Sig Start Date Stop Date Notes miSOPROStol 200 MCG 2 TABLETS Orally NIG HT BEFORE PROCEDURE for 1 days 12/11/2024 Diflucan 150 MG 1 tablet Orally EVER Y 3 DAYS for 10 days 12/11/2024 Clotrimazole-Betamethasone 1-0.05 % 1 application to affected area Externally TWICE A DAY FOR 1 TO 2 WEEKS for 14 days 12/11/2024 Treatment Notes Assessment Notes Encounter for gynecological examination (general) (routine) without abnormal findings PAP TEST WITH HPV TYPING WAS OBTAINED. Encounter for screening mamm ogram for malignant neoplasm of breast REGULAR MAMMOGRAMS AND SBE'S WERE RECOMMENDED. Other specified abnormal [place] rine and vaginal bleeding DISCUSSED ABNORMAL UTERINE BLEEDING AND NEED FOR FURTHER EVALUATION. DISCUSSED HSONO'S AND EMB'S. SCHEDULE THESE PROCEDURES. MISO/MOTRIN Acute candidiasis of vulva and vagina DISCUSSED FINDINGS, CHRONIC YEAST MAY BE DUE TO UNCONTROLLED DM TYPE 2. KEEP AREA CLEAN AND DRY. LOOSE WHITE COTTON UNDERWEAR. AVOID LEGGINGS AND TIGHT PANTS. RX'S FOR LOTRISONE CREAM AND DIFLUCAN WITH DETAILED INSTRUCTIONS WERE GIVEN. Morbid (severe) obesity due to excess calories DISCUSSED NEGATIVE EFFECTS OF OBESITY ON HER HEALTH. CONTINUE WEGOVY. ADEQUATE EXERCISE AND REASONABLE DIET. Pending Test Test Name Order Date MM Digital Mammo Screening 12/11/2024 Next Appt Details Follow Up: 4 Weeks, Reason: Provider Name:Silva eastman, 01/09/2025 08:30:00 AM, [address], [address], [place], [address], Provider Name:Silva eastman, 01/09/2025 08:40:00 AM, [address], [address], [place], [address], Provider Name:Silva eastman, 12/16/2025 08:40:00 AM, [address], [address], [place], [address], Progress Notes * YANY OREILLY:1975 (49 yo F)Acc No.[id number]:12/11/2024 Progress Note Patient:INO CAMACHO Appointment Provider:?Silva eastman M.D. :1975???Age:49 Y???Sex:Female D ate:12/11/2024 Address:[address] [place] [address] Pcp:JAY RODRIGES PA-C Subjective: * Chief Complaints: * ??? Annual PHP ENGINEER PhysicalAnnua l PHP ENGINEER Physical 40-49 * HPI: ???New/Follow-up Patient Consult:? PAT IS NEW TO OUR OFFICE.?? SHE HAD REGULAR MENSES UNTIL ABOUT A YEAR AGO WHEN SHE NOTED HER MENSES COMING AT 2 TO 4 WEEK INTERVALS AND THE SHORTER INTERVALS WERE COMING MORE OFTEN.? SHE DENIED HOT FLASHES AND NIGHT SWEATS.?? SHE ALSO C/O VULVAR, VAGINAL AND PERIRECTAL ITCHING ALSO OF A BOUT A YEAR'S DURATION.? SHE IS A KNOWN DIABETIC WITH POOR GLUCOSE CONTROL.? SHE IS PRESENTLY ON WEGOVY AND ORAL MEDS.? SHE IS NOT ON INSULIN YET.?? SHE WEARS A PAD DAILY DUE TO URINARY INCONTINENCE.? SHE LOSES URINE WHEN SHE SNEEZES AND WHEN SHE HAS A STRONG URGE TO URINATE. HER MEDICAL HX IS SIGNIFICANT FOR DIABETES TYPE 2 AND?HYPERTENSION.? SHE IS FOLLOWED BY HER PCP AND AN BULLET SLUGS INSPECTOR. HER SURGICAL HX SHOWS MELANOMA EXCISION FROM A LABIA MAJORA AT AGE 21.? NO RECURRENCE.? 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 SHE HAS BEEN 23 YEARS AND DENIES DYSPAREUNIA. HER LAST MAMMOGRAM WAS DONE IN OCT 2024 AND WAS REPORTEDLY NEGATIVE.? SHE DENIES ANY HX OF ABNORMAL MAMMOGRAMS. HER LAST PAP TEST WAS DONE IN 2022 AND WAS ALSO REPORTEDLY NEGATIVE.? SHE DENIES ANY ABNORMAL PAP TESTS. ???Annual:? Patient presents for annual exam, ages 40-49. ?General Health Maintenance:?Current breast complaints:?no breast pain, mass, discharge, or skin changes ?Urinary problems:?patient reports no urinary health problems or bowel health problems ?Calcium intake:?takes adequate calcium via diet and supplementation ?Significant PHP ENGINEER problems:?no significant fuel buyer symptoms or problems * ROS:?general:?no?chest pain.?no?palpitations.?no?headache.?no?cough.?no?shortness of breath.?no?fever.?no?unexplained weight loss.?no?nausea/vomiting.?no?change in bowel movements.?no blood in stool.?no?genitourinary complaints.?no?skin complaints.? * Medical History:? * Mandrel Press Hand History:?Sexual activity?currently sexually active, with men.?Last Pap Smear:?2022.?Mammogram:?11/28/24.?LMP and menses?12/04/24.?Menarche?11.? * OB History:?Total pregnancies?0.? * Surgical History:?No Surgica l History documented. * Hospitalization/Major Diagno stic Procedure:?melanoma removal labia 1996 * Family History:?Mother: aliv e, Hypertension, diabetes.?Father: .? * Social History:?Tobacco Use:?Tobacco Control (Standard)?Tobacco use:?Nonsmoker ???Sexual History:?Sexual History?Had sex in the past 12 months (vaginal, oral, or anal)??Yes ?with?Men only ?Details of Sexual History?Are you sexually active??No ?Sexual Abuse?History:?none ???Drugs/Alcohol:?Drugs?Have you used drugs other than those for medical reasons in the past 12 months??No ?Caffeine?Intake:?more than 4 cups per day ???Miscellaneous:?Children: none. ?Domestic violence: none. ?Exercise: weekly, walking. ?Home smoke detector use: smoke detectors, carbon monoxide detector. ?Housing: owns a home. ?Living with: spouse, Parents. ?Marital status: . 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 ???Drug/Alcohol:?AUDIT-C (Standard)?Did you have a drink containing alcohol in the past year??No ?Points?0 ?Interpretation?Negative * Medications:?TakingmetFORMIN HCl 1000 MG Tablet 1 tablet with a meal Orally Once a day Farxiga 10 MG Tablet 1 tablet Orally Once a day Lisinopril 40 MG Tablet 1 tablet Orally Once a day glipiZIDE 10 MG Tablet 1 tablet 30 minutes before breakfast Orally Once a day Rosuvastatin Calcium 40 MG Tablet 1 tablet Orally Once a day Levothyroxine Sodium 50 MCG Tablet 1 tablet in the morning on an empty stomach Orally Once a day Medication List reviewed and reconciled with the patientTaking metFORMIN HCl 1000 MG Tablet 1 tablet with a meal Orally Once a day Taking Farxiga 10 MG Tablet 1 tablet Orally Once a day Taking Lisinopril 40 MG Tablet 1 tablet Orally Once a day Taking glipiZIDE 10 MG Tablet 1 tablet 30 minutes before breakfast Orally Once a day Taking Rosuvastatin Calcium 40 MG Tablet 1 tablet Orally Once a day Taking Levothyroxine Sodium 50 MCG Tablet 1 tablet in the morning on an empty stomach Orally Once a day Medication List reviewed and reconciled with the patient * Allergies:?N.K.D.A.no[Allerg ies Verified] Objective: * Vitals:?Ht: 64 in, Wt:275lbs , BMI:47.2Index, BP:126/78mm Hg, Temp:98.0F. * Examination: ???General Exam: ?CONSTITUTIONAL:?NECK/THYROID:?RESPIRATORY:?Auscultation: clear to auscultation bilaterally, Respiratory Effort: normal.?CARDIOVASCULAR:?Auscultation: regular rate and rhythm.?BREAST, Right:?BREAST, Left:?GASTROINTESTINAL:?MUSCULOSKELETAL:?SKIN:?NEURO/PSYCH:?Genitourinary: ?EXTERNAL GENITALIA:?VAGINA:?BLADDER:?URETHRA:?CERVIX:?UTERUS:?ADNEXA:?ANUS AND PERINEUM:? Assessment: * Assessment: 1.?Encounter for gynecologic al examination (general) (routine) without abnormal findings - Z01.419???2.?Encounter for screening mammogram for malignant neoplasm of breast - Z12.31???3.?Other specified abnormal uterine and vaginal bleeding - N93.8? ?4.?Acute candidiasis of vulva and vagina - B37.31???5.?Morbid (severe) obesity due to excess calories - E66.01??? Plan: * Treatment: ?LAB: Urinalysis (Collection Date & Time - 12/11/2024)* ? Value Reference Range ?PH 6 * ?PROTEIN Neg * ?GLUCOSE Neg * ?BLOOD neg Notes: PAP TEST WITH HPV TYPING WAS OBTAINED.??2.?Encounter for screening mammogram for malignant neoplasm of breast?Imaging: MM Digital Mammo Screening Notes: REGULAR MAMMOGRAMS AND SBE'S WERE RECOMMENDED.??3.?Other specified abnormal uterine and vaginal bleeding? Start miSOPROStol Tablet, 200 MCG, 2 TABLETS, Orally, NIGHT BEFORE PROCEDURE, 1 days, 2 Tablet, Refills 0.?? Notes: DISCUSSED ABNORMAL UTERINE BLEEDING AND NEED FOR FURTHER EVALUATION. DISCUSSED HSONO'S AND EMB'S. SCHEDULE THESE PROCEDURES. MISO/MOTRIN??4.?Acute candidiasis of vulva and vagina? Start Diflucan Tablet, 150 MG, 1 tablet, Orally, EVERY 3 DAYS, 10 days, 3 Tablet, Refills 0;?Start Clotrimazole-Betamethasone Cream, 1-0.05 %, 1 application to affected area, Externally, TWICE ADAY FOR 1 TO 2 WEEKS, 14 days, 45 Gram, Refills 4.?? Notes: DISCUSSED FINDINGS, CHRONIC YEAST MAY BE DUE TO UNCONTROLLED DM TYPE 2. KEEP AREA CLEAN AND DRY. LOOSE WHITE COTTON UNDERWEAR. AVOID LEGGINGS AND TIGHT PANTS. RX'S FOR LOTRISONE CREAM AND DIFLUCAN WITH DETAILED INSTRUCTIONS WERE GIVEN.?? 5.?Morbid (severe) obesity due to excess calories? Notes: DISCUSSED NEGATIVE EFFECTS OF OBESITY ON HER HEALTH. CONTINUE WEGOVY. ADEQUATE EXERCISE AND REASONABLE DIET. ?? * Procedure Codes:? * Preventive Medicine:? ??YOUR PREVENTIVE WELLNESS PLAN:?Osteoporosis prevention?Calcium, D, strength training.?Breast Cancer Screening (Mammogram):?annually.?Cervical Cancer Screening (Pap Smear):?q 3 years with HPV screen.?Colorectal Cancer Screening:?q 10 years.? * Follow Up:?4 Weeks * Images: Billing Information: * Visit Code:? 21692 Preventive Care New Pt. Age 40-64. 31388 Preventive Care Est Pt. Age 40-64. * Procedure Codes:? * Sign off status: Completed true * Appointment Provider:?Silva Estrada M.D. Date:?12/11/2024 Generated for Erik patrick/Titi/Keithitting on:?12/22/2024 04:00 PM EST History and Physical Notes * HPI (History of Present Illness) Category Sub-Category Detail Notes Category Not es New/Follow-up Patient Consult PAT IS NEW TO OUR OFFICE. SHE HAD REGULAR MENSES UNTIL ABOUT A YEAR AGO WHEN SHE NOTED HER MENSES COMING AT 2 TO 4 WEEK INTERVALS AND THE SHORTER INTERVALS WERE COMING MORE OFTEN. SHE DENIED HOT FLASHES AND NIGHT SWEATS. SHE ALSO C/O VULVAR, VAGINAL AND PERIRECTAL ITCHING ALSO OF A BOUT A YEAR'S DURATION. SHE IS A KNOWN DIABETIC WITH POOR GLUCOSE CONTROL. SHE IS PRESENTLY ON WEGOVY AND ORAL MEDS. SHE IS NOT ON INSULIN YET. SHE WEARS A PAD DAILY DUE TO URINARY INCONTINENCE. SHE LOSES URINE WHEN SHE SNEEZES AND WHEN SHE HAS A STRONG URGE TO URINATE. HER MEDICAL HX IS SIGNIFICANT FOR DIABETES TYPE 2 AND HYPERTENSION. SHE IS FOLLOWED BY HER PCP AND AN BULLET SLUGS INSPECTOR. HER SURGICAL HX SHOWS MELANOMA EXCISION FROM A LABIA MAJORA AT AGE 21. NO RECURRENCE. 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 SHE HAS BEEN 23 YEARS AND DENIES DYSPAREUNIA. HER LAST MAMMOGRAM WAS DONE IN OCT 2024 AND WAS REPORTEDLY NEGATIVE. SHE DENIES ANY HX OF ABNORMAL MAMMOGRAMS. HER LAST PAP TEST WAS DONE IN 2022 AND WAS ALSO REPORTEDLY NEGATIVE. SHE DENIES ANY ABNORMAL PAP TESTS. Annual General Health Maintenance: Current breast complaints:: no breast pain, mass, discharge, or skin changes Urinary problems:: patient r eports no urinary health problems or bowel health problems Calcium intake:: takes adequ ate calcium via diet and supplementation Significant PHP ENGINEER problems:: n o significant fuel buyer symptoms or problems Examination Category Sub-Category Detail Notes Category Not es General Exam CONSTITUTIONAL: General Appearan ce:: alert, in no acute distress, normal, well nourished , morbidly obese NECK/THYROID: Thyroid:: normal size and shape Inspection/Palpation:: normal RESPIRATORY: Auscultation: clear to auscultation bilaterally, Respiratory Effort: normal CARDIOVASCULAR: Auscultation: regula r rate and rhythm GASTROINTESTINAL: Hernias:: no hernias present, no inguinal adenopathy Liver and Spleen:: normal Abdomen:: no masses, nontender, nondiste nded MUSCULOSKELETAL: Inspection/Palpation:: no clubb ing, cyanosis, or edema SKIN: Skin:: normal NEURO/PSYCH: Mood/Affect:: normal Orientation:: time , place, person BREAST, Right: Inspection/Palpation :: no discharge, no masses present, no nipple retraction, no skin changes, no skin dimpling, no tenderness, no lymphadenopathy, no axillary mass, no axillary tenderness BREAST, Left: Inspection/Palpation :: no discharge, no masses present, no nipple retraction, no skin changes, no skin dimpling, no tenderness, no lymphadenopathy, no axillary mass, no axillary tenderness Genitourinary EXTERNAL GENITALIA: External Genitalia:: inflamed and erythematous labia minora and majora and perirectal area, + yeast VAGINA: Vagina:: normal appe arance, no abnormal discharge, no lesions BLADDER: Bladder:: no mass, nontender URETHRA: Urethra:: no erythema or lesions present CERVIX: Cervix:: no lesions, nontender UTERUS: Uterus:: nontender, normal contour, normal mobility, normal size ADNEXA: Adnexa:: no masses, no tendernes s ANUS AND PERINEUM: Anus/Perineum:: erythematous, + yeast
== END 2024-12-22 14:55 | disposition home or self-care (01) ==
PROVIDERS: PCP Physician Assistant Medical; Visit Provider Nurse Practitioner Family
DX: J06.9 Acute upper respiratory infection, unspecified (principal); R05.1 Acute cough

== ENCOUNTER 2025-02-16 09:26 | Outpatient (REF) | payer OTHER, SELFPAY ==
--- OUTSIDE RECORDS SUMMARY | 2025-02-16 09:28 | XMS_ITS ---
Author Organization [facility] Address [address] [place] [address] Care Team Providers Care Bike Technician Name Role Phone JAY RODRIGES PA-C Primary Care Provider Silva Engle Unavailable [phone] Results Component Value Reference Range Notes Cancer Antigen (CA) [id number] (Not yet reviewed by provider) Interpretation: Performing Lab:[email or web address] [address], Phone - [phone], Director - Tiffanie Notes/Report: Test(s) [id number]-Xosipuw B This test was developed and its performance characteristics determined by [email or web address]. It has not been cleared or approved by the Food and Drug Administration. Cancer Antigen (CA) 125 39.5 0.0-38.1 U/mL [employer] Electrochemiluminescence Immunoassay (ECLIA) . Values obtained with different assay methods or kits cannot be used interchangeably. Results cannot be interpreted as absolute evidence of the presence or absence of malignant disease. [id number] Reviewed date:02/13/2025 08:16:50 AM Interpretation: Performing Lab:[facility] [address], Phone - [phone], Director - Tiffanie Notes/Report: Test(s) 690211-Hspvzqv B This test was developed and its performance characteristics determined by [email or web address]. It has not been cleared or approved by the Food and Drug Administration. LDH 194 119-226 IU/L [id number] Reviewed date:02/13/2025 08:16:39 AM Interpretation: Performing Lab:[facility] [address], Phone - [phone], Director - Tiffanie Notes/Report: Test(s) 805087-Enwasfc B This test was developed and its performance characteristics determined by [facility]. It has not been cleared or approved by the Food and Drug Administration. CEA 0.7 0.0-4.7 ng/mL Nonsmokers <3.9 Smokers <5.6 . [facility] [employer] Electrochemiluminescence Immunoassay (ECLIA) . Values obtained with different assay methods or kits cannot be used interchangeably. Results cannot be interpreted as absolute evidence of the presence or absence of malignant disease. Inhibin B-[id number] Reviewed date:02/13/2025 08:17:02 AM Interpretation: Performing Lab:[facility] [place] [address] [place] [address], Phone - [phone], Director Radha Moreno Notes/Report: Test(s) [id number]-Sdzaeko B This test was developed and its performance characteristics determined by [facility]. It has not been cleared or approved by the Food and Drug Administration. Inhibin B 156.5 Early Follicular <261.0 Late Follicular <286.0 Periovulatory <189.0 MidLuteal <164.0 End Luteal <107.0 Post Menopausal < 17.0 Inhibin B performed by [employer](TM) Enzyme Linked Immunoassay methodology. Values obtained with different assay methods or kits cannot be used interchangeably. Inhibin A, Ultrasensitive-14 6803 Reviewed date:02/13/2025 08:17:14 AM Interpretation: Performing Lab:[facility] [place] [address] [place] [address], Phone - [phone], Director Radha Moreno Notes/Report: Test(s) 618003-Gifsprk B This test was developed and its performance characteristics determined by [facility]. It has not been cleared or approved by the Food and Drug Administration. Inhibin A, Ultrasensitive 21.1 Menstrual Phase Early Follicular <34.0 Late Follicular <99.0 Periovulatory 8.0-233.0 MidLuteal <145.0 End Luteal <145.0 Postmenopausal <4.0 Inhibin A performed by [employer] Access Automated Immunoassay methodology. Values obtained with different assay methods or kits cannot be used interchangeably. PDF Report Reviewed date:02/13/2025 08:13:31 AM Interpretation: Performing Lab:[facility] [place] [address] [place] [address], [place], Phone - [phone], Director Radha Moreno Notes/Report: Test(s) [id number]-Kswhwcj B This test was developed and its performance characteristics determined by [facility]. It has not been cleared or approved by the Food and Drug Administration. REASON FOR VISIT HSONO/EB/AUB Medications Medication SIG (Take, Route, Frequency, Duration) Notes Start Date End Date Status miSOPROStol 200 MCG 2 TABLETS Orally NIG HT BEFORE PROCEDURE for 1 days 12/11/2024 Active Clotrimazole-Betamethasone 1-0.05 % 1 application to affected area Externally TWICE A DAY FOR 1 TO 2 WEEKS for 14 days 12/11/2024 Active Diflucan 150 MG 1 tablet Orally EVER Y 3 DAYS for 10 days 12/11/2024 Active Levothyroxine Sodium 50 MCG 1 tablet in the morning on an empty stomach Orally Once a day Active Rosuvastatin Calcium 40 MG 1 tablet Oral ly Once a day Active Lisinopril 40 MG 1 tablet Orally Once a day Active Farxiga 10 MG 1 tablet Orally Once a day Active metFORMIN HCl 1000 MG 1 tablet with a me al Orally Once a day Active glipiZIDE 10 MG 1 tablet 30 minutes before breakfast Orally Once a day Active Encounters Encounter Location Date Provider Diagnosis Total [address] [place] [address] 02/06/2025 Silva Estrada Other specified abnormal uterine and vaginal bleeding N93.8 and Unspecified ovarian cyst, left side N83.202 Assessments Encounter Date Diagnosis (ICD Code) Assessment Notes Treatment Notes Treatment Clinical Notes Section Notes 02/06/2025 Other specified abnormal uterine and vaginal bleeding (ICD-10 - N93.8) HSONO WAS ATTEMPTED BUT THE CERVIX COULD NOT EVEN BE VISUALIZED WELL HER UTERUS IS RETROVERTED AND THE CERVIX IS DISPLACED ANTERIORLY, BEHING THE SYMPHYSIS PUBIS. HSONO WAS DEFERRED. WILL REFER TO [facility] AND ALERT THEM OF HX OF AUB. ANTERIOR FUNDAL SUBSEROUS FIBROID WAS NOTED. 02/06/2025 Unspecified ovarian cyst, left side (ICD-10 - N83.202) DISCUSSED FINDINGS: 5CM CLEAR RIGHT OVARIAN CYST AND 14 CM LEFT HOMOGENEOUS SOLID OVARIAN MASS. TUMOR MARKERS WERE ORDERED. DISCUSSED POSSIBILITY OF OVARIAN MALIGNANCY AND REFERRAL TO [facility]. PAT AGREED. Plan Of Treatment Treatment Notes Assessment Notes Other specified abnormal kobuk rine and vaginal bleeding HSONO WAS ATTEMPTED BUT THE CERVIX COULD NOT EVEN BE VISUALIZED WELL HER UTERUS IS RETROVERTED AND THE CERVIX IS DISPLACED ANTERIORLY, BEHING THE SYMPHYSIS PUBIS. HSONO WAS DEFERRED. WILL REFER TO [facility] AND ALERT THEM OF HX OF AUB. ANTERIOR FUNDAL SUBSEROUS FIBROID WAS NOTED. Unspecified ovarian cyst, left side DISCUSSED FINDINGS: 5CM CLEAR RIGHT OVARIAN CYST AND 14 CM LEFT HOMOGENEOUS SOLID OVARIAN MASS. TUMOR MARKERS WERE ORDERED. DISCUSSED POSSIBILITY OF OVARIAN MALIGNANCY AND REFERRAL TO [facility]. PAT AGREED. Pending Test Test Name Order Date Cancer Antigen (CA) [id number] Next Appt Details Follow Up: prn, Reason: Provider Name:Silva eastman, 12/16/2025 08:40:00 AM, [address] [facility], [address], [place], [address], Progress Notes * INO OREILLYDOB:1975 (49 yo F)Acc No.[id number]:02/06/2025 Patient:?INO OREILLY Appointment Provider:?Silva eastman M.D. :1975???Age:49 Y???Sex:Female D ate:02/06/2025 Address:[address] [place], [place] [id number] Pcp:JAY RODRIGES PA-C Subjective: * Chief Complaints: * ???HSONO/EB/AUB * HPI: ???New/Follow-up Patient Consult:? PAT IS NEW TO OUR OFFICE.? SHE WAS FIRST SEEN ON 12/11/24.?? SHE C/O MENSES COMING AT 2 TO 4 WEEK INTERVALS AND THAT SHORTER CYCLES WERE OCCURING MORE FREQUENTLY.? SHE DENIED S/SX OF MENOPAUSE. SHE IS MORBIDLY OBESE AND I WAS WORRIED ABOUT ENDOMETRIAL HYPERPLASIA OR EVEN ENDOMETRIAL CA ITSELF.? HSONO AND EMB WERE RECOMMENDED. * ROS:?general:?no?chest pain.?no?palpitations.?no?headache.?no?cough.?no?shortness of breath.?no?fever.?no?unexplained weight loss.?no?nausea/vomiting.?no?change in bowel movements.?no blood in stool.?genitourinary complaints?yes,?SHORT MENSTRUAL CYCLES AND BLEEDING Q 2 WEEKS.?no?skin complaints.? * Medical History:? * Medications:?TakingmetFORMIN HCl 1000 MG Tablet 1 [...] an empty stomach Orally Once a day Diflucan 150 MG Tablet 1 tablet Orally EVERY 3 DAYS Clotrimazole-Betamethasone 1-0.05 % Cream 1 application to affected area Externally TWICE A DAY FOR 1 TO 2 WEEKS miSOPROStol 200 MCG Tablet 2 TABLETS Orally NIGHT BEFORE PROCEDURE Taking metFORMIN HCl 1000 MG Tablet 1 tablet [...] an empty stomach Orally Once a day Taking Diflucan 150 MG Tablet 1 tablet Orally EVERY 3 DAYS Taking Clotrimazole-Betamethasone 1-0.05 % Cream 1 application to affected area Externally TWICE A DAY FOR 1 TO 2 WEEKS Taking miSOPROStol 200 MCG Tablet 2 TABLETS Orally NIGHT BEFORE PROCEDURE * Allergies:?no[Allergies Veri fied] Objective: * Vitals:? Assessment: * Assessment: 1.?Other specified abnormal uterine and vaginal bleeding - N93.8???2.?Unspecified ovarian cyst, left side - N83.202??? Plan: * Treatment: 2.?Unspecified ovarian cyst, left side?LAB: [id number] ?LAB: [id number] ?LAB: Cancer Antigen (CA) [id number] ?LAB: Inhibin B-[id number] ?LAB: Inhibin A, Ultrasensitive-[id number] Notes: DISCUSSED FINDINGS: 5CM CLEAR RIGHT OVARIAN CYST AND 14 CM LEFT HOMOGENEOUS SOLID OVARIAN MASS. TUMOR MARKERS WERE ORDERED. DISCUSSED POSSIBILITY OF OVARIAN MALIGNANCY AND REFERRAL TO [facility]. PAT AGREED.?? * Procedure Codes:? * Follow Up:?prn * Images: Billing Information: * Visit Code:? * Procedure Codes:? * Sign off status: Completed Addendum: * ? true * Appointment Provider:?Silva Estrada M.D. Date:?02/06/2025 Generated for Erik patrick/Titi/Keithitting on:?02/16/2025 09:28 AM EDT History and Physical Notes * HPI (History of Present Illness) Category Sub-Category Detail Notes Category Not es New/Follow-up Patient Consult PAT IS NEW TO OUR OFFICE. SHE WAS FIRST SEEN ON 12/11/24. SHE C/O MENSES COMING AT 2 TO 4 WEEK INTERVALS AND THAT SHORTER CYCLES WERE OCCURING MORE FREQUENTLY. SHE DENIED S/SX OF MENOPAUSE. SHE IS MORBIDLY OBESE AND I WAS WORRIED ABOUT ENDOMETRIAL HYPERPLASIA OR EVEN ENDOMETRIAL CA ITSELF. HSONO AND EMB WERE RECOMMENDED.
--- OUTSIDE RECORDS SUMMARY | 2025-02-16 09:29 | XMS_ITS ---
Author Organization [facility] Address [address] [place] [address] Care Team Providers Care Health And Fitness Instructor Name Role Phone JAY RODRIGES PA-C Primary Care Provider Silva Engle Unavailable [phone] REASON FOR VISIT HSONO/EB/AUB Encounters Encounter Location Date Provider Diagnosis [facility] [address] [place] [address] 01/09/2025 Silva Estrada Plan Of Treatment Next Appt Details Provider Name:Silva eastman, 12/16/2025 08:40:00 AM, [address] [place] [address], [address], [place], [address], Progress Notes * INO OREILLYDOB:1975 (49 yo F)Acc No.[id number]:01/09/2025 Patient:?INO OREILLY Appointment Provider:?Silva eastman M.D. :1975???Age:49 Y???Sex:Female D ate:01/09/2025 Address:[address] [place], [place] [id number] Pcp:JAY RODRIGES PA-C Subjective: * Chief Complaints: * ???1. HSONO/EB/AUB. * Medical History:? Objective: * Vitals:? Assessment: Plan: * Treatment: * Images: Billing Information: * Visit Code:? * Procedure Codes:? * Electronic signature of Lizzette Estrada MD on 02/16/2025 at 09:28 AM EDT Sign off status: Pending * Appointment Provider:?Silva Estrada M.D. Date:?01/09/2025 Generated for Erik patrick/Titi/Jimmy on:?02/16/2025 09:28 AM EDT
[2025-02-16 11:08] LABS: Estimated Average Glucose 183 mg/dL; Hemoglobin A1C 244.2505 umol/L; Total Hemoglobin (HGBA1C) 3816.6003 umol/L
[2025-02-16 11:19] LABS: Cholesterol 182 mg/dL (<200); HDL Cholesterol 42 mg/dL (>40); LDL Cholesterol Calculated 78 mg/dL (<100); Triglycerides 313 mg/dL (<150)
== END 2025-02-16 09:27 | disposition home or self-care (01) ==
LOC: HO.WFDLDS 09:26
PROVIDERS: Visit Provider Physician Assistant Medical
DX: E11.29 Type 2 diabetes mellitus with other diabetic kidney complication (principal); R80.9 Proteinuria, unspecified; E11.9 Type 2 diabetes mellitus without complications; E78.5 Hyperlipidemia, unspecified
CPT/HCPCS: 36415; 80061; 83036

== ENCOUNTER 2025-02-23 11:24 | Outpatient (AMB) | payer OTHER, SELFPAY ==
--- NOTE | 2025-02-23 11:54 | MHC.PC.OV ---
Vital Signs 02/23/25 11:59 Height 5 ft 4 in Weight 274 lb 2 oz BMI 47.0 BP 126/72 Blood Pressure Location Rt brachial Position Sitting Pulse 107 H Pulse Source Pulse Oximeter Temp 98.4 F Temp Source Temporal Artery Scan Pulse Oximetry (%) 98 Oxygen Delivery Method Room Air Intake Visit Reasons: 3 MONTH FU Intake Note: Guillermina presents in the office today for a three month follow up. Allergies No Known Allergies Allergy (Verified 02/23/25 11:56) Tobacco use date assessed: 02/23/25 Dental Screening Dental Screen Date: 02/23/25 Did you have a dental visit in the last 12 months?: Yes Did you have a dental problem in the last 6 months where you did not have access to dental care?: No Was dental information given to patient?: Patient has dentist HPI HPI Comments History of Present Illness Details This is a 49-year-old female with a past medical history of type 2 diabetes, melanoma, hypertension, hyperlipidemia and hypothyroidism presenting for follow up. She is accompanied by her . Type 2 diabetes-this was diagnosed in 2013. Her hemoglobin A1c decreased from 8.6-8%. Her triglycerides decreased from 325-313. LDL cholesterol is 78, and HDL is 42. She has normal renal function. She was evaluated by endocrinology. She met with the community nutrition educator. She has microalbuminuria. She is on an EAMON inhibitor. Her current regimen is Farxiga 10 mg, glipizide XL 10 mg twice daily, metformin 1000 mg twice daily and Mounjaro 15 mg weekly. She denies side effects. AM fasting-not checking Glucose after [id number] Hypothyroidism-taking levothyroxine 50 mg once daily. Recent TSH normal. Hypertension-taking lisinopril 30 mg daily. Hydrochlorothiazide discontinued due to hypotension and hypercalcemia. Hyperlipidemia-taking Crestor 40 mg daily. LDL at goal. She has hypertriglyceridemia. The patient saw Dr. Estrada in November, and she detected a vaginal mass. She was referred to [facility], but they could not perform a biopsy so they are requesting imaging (per patient a CAT scan and chest x-ray), and then they are going to determine what type of surgical procedure to patient needs. The patient says that the specialist thought it was less likely that this is cancer, but she is still concerned that about the risk that it could be cancer. She is not having any bleeding or significant pain. She was referred for colonoscopy. She goes to [facility] for skin surveillance. No recurrence of skin cancer to date. She is up-to-date with the flu and COVID vaccines through her pharmacy. She received the PPSV23 vaccine in 2014. Tdap is up-to-date. Patient was recently treated for a sinus infection with azithromycin and prednisone from urgent care. She is feeling better. She still has a lingering dry cough but no fevers or chills or chest pain or shortness of breath. She is using Tessalon Perles. ROS: Constitutional: No unexplained weight loss, fever, chills, fatigue or night sweats. Respiratory: No shortness of breath Cardiovascular: No chest pain Gastrointestinal: No anorexia, nausea, vomiting or diarrhea. No abdominal pain or blood in stool. Neurologic: No headache, dizziness, syncope Hematologic/Lymphatics: No bleeding or bruising Psychiatric: +anxiety Physical exam: Constitutional: Alert, in no distress. Eyes: Pupils are equal, round and reactive to light. Extraocular muscles intact. Ear, Nose and Throat: Canals clear. TMs normal. Normal nasal mucosa. No nasal discharge. No oral lesions. Sinuses nontender Neck: Supple, Full range of motion. No lymphadenopathy. Respiratory: Clear to auscultation. Cardiovascular: S1 S2 regular. No murmurs. Extremities: Warm and well perfused. No edema. Psychiatric: Normal mood and affect [facility] Medical History (Updated 02/24/25 @ 16:42 by JOEL Mendoza) Vaginal mass Acute respiratory disease Grade I diastolic dysfunction Abnormal echocardiogram Hypothyroidism Morbid obesity Microalbuminuria Essential hypertension Mixed hyperlipidemia History of melanoma Hepatic steatosis Screening for cardiovascular condition Type 2 diabetes mellitus Surgical History (Updated 07/08/24 @ 09:17 by JOEL Mendoza) History of melanoma excision Family History (Updated 02/23/25 @ 11:58 by Priya Davis MA) Maternal Grandfather Lung cancer Mother Type 2 diabetes mellitus Social History (Updated 02/23/25 @ 11:58 by Priya Davis MA) Housing: House Alcohol intake: never Patient Tobacco Use Status: Never used Tobacco e-Cigarette/Vaping Use: Never Used Second Hand Smoke Exposure: No service: No Current occupational status: employed 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 1. Little interest or pleasure in doing things: not at all 2. Feeling down, depressed, or hopeless: not at all 3. Trouble falling or staying asleep, or sleeping too much: not at all 4. Feeling tired or having little energy: not at all 5. Poor appetite or overeating: not at all 6. Feeling bad about yourself - or that you are a failure or have let yourself or your family down: not at all 7. Trouble concentrating on things, such as reading the newspaper or watching television: not at all 8. Moving or speaking so slowly that other people could have noticed. Or the opposite - being so fidgety or restless that you have been moving around a lot more than usual: not at all 9. Thoughts that you would be better off or of hurting yourself in some way: not at all Total score: 0 Depression Screening Interpretation: Negative Depression Screening Done: Yes 14574 - PHQ-9 Billing: Patient declined-do not bill Source: Developed by Drs. Humphrey Hunter, Swati Morgan, Haja Ellis and colleagues, with an educational mora from [employer]. Thrive Questionnaire Date Thrive assessed: 02/23/25 I am a: Patient What is your living situation today?: I have a steady place to live Within the past 12 months, did the food you bought not last and you didn't have the money to get more?: Never true Within the past 12 months, did you worry whether your food would run out before you got money to buy more?: Never true Do you have trouble paying for medicines?: No Do you have trouble getting transportation to medical appointments?: No Do you have trouble paying your heating and electricity bill?: No Do you have trouble taking care of your child, family member or friend?: No Do you have trouble with day-to-day activities such as bathing, preparing meals, shopping, managing finances, etc.?: No Are you currently unemployed and looking for a job?: No Are you interested in more education?: No Please select the resources that you would like help with: None Currently or been in a relationship where the following occur: No concerns reported THRIVE Score: 0 AUDIT C Alcohol Use Questionnaire (AUDIT-C) 1. How often do you have a drink containing alcohol?: Monthly or less 2. How many drinks containing alcohol do you have on a typical day when you are drinking?: 1 or 2 3. How often do you have six or more drinks on one occasion?: Never Total Score: 1 Score Reviewed/Action Taken: No YOUSUF-7 AMB Questionnaire YOUSUF-7 Date YOUSUF - 7 assessed: 02/23/25 Feeling nervous, anxious, or on edge: 0 = Not at all Not being able to stop or control worryin = Not at all Worrying too much about different things: 0 = Not at all Trouble relaxin = Not at all Being so restless that it is hard to sit still: 0 = Not at all Becoming easily annoyed or irritable: 0 = Not at all Feeling afraid as if something awful might happen: 0 = Not at all Total YOUSUF-7 score (0-4 normal; 5-9 mild; 10-14 moderate; 15-21 severe): 0 Source: Developed by Drs. Humphrey Hunter, Swati Morgan, Haja Ellis and colleagues, with an educational mora from [employer]. YOUSUF-7 Assessment Billing YOUSUF-7 Assessment Tool: YOUSUF-7 Assessment 16555 ACT Questionnaire In the past 4 weeks, how much of the time did your asthma keep you from getting as much done at work, school or at home?: None of the time Score: 5 Physical exam (Primary Care) Vital Signs: Last Vital Signs Temp 98.4 F 02/23/25 11:59 Pulse 107 H 02/23/25 11:59 BP 126/72 02/23/25 11:59 Pulse Ox 98 02/23/25 11:59 Oxygen Delivery Method Room Air 02/23/25 11:59 BMI result Body Mass Index 47.0 Tobacco/Smoking Status: Tobacco use Status Tobacco use date assessed 02/23/25 02/23/25 12:02 Patient Tobacco Use Status Never used Tobacco 02/23/25 12:02 e-Cigarette/Vaping Use Never Used 02/23/25 12:02 PHQ-9: PHQ-9 Score PHQ-9: Total score 0 02/23/25 12:19 Depression Screening Interpretation: Negative Thrive Assessment: Date of Thrive Assessment Date Thrive assessed 02/23/25 02/23/25 12:02 Currently or been in a relationship where the following occur: No concerns reported Coding Level of Care Code Est Pt Level 4 (20129) Complex EM visit Add On G2211 Diagnoses 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 Hypothyroidism type: due to [place]'s thyroiditis Morbid obesity E66.01 Microalbuminuria R80.9 Essential hypertension I10 Mixed hyperlipidemia E78.2 History of melanoma Z85.820 Type 2 diabetes mellitus with diabetic microalbuminuria, without long-term current use of insulin E11.29; R80.9 Diabetes mellitus continuous churn buttermaker insulin use: without shelter use Diabetes mellitus complication status: with kidney complications Diabetes mellitus complication detail: with diabetic microalbuminuria Cough R05.9 Vaginal mass N89.8 Additional Codes YOUSUF-7 Assessment Billing - YOUSUF-7 Assessment Tool: YOUSUF-7 Assessment 15281 ([id number]) Assessment & Plan Assessment & Plan (1) Hypothyroidism: Code(s): E03.9 - Hypothyroidism, unspecified Category: Medical Qualifiers: Hypothyroidism type: due to [place]'s thyroiditis Qualified Code(s): E06.3 - Autoimmune thyroiditis (2) Morbid obesity: Code(s): E66.01 - Morbid (severe) obesity due to excess calories Category: Medical (3) Microalbuminuria: Code(s): R80.9 - Proteinuria, unspecified Category: Medical (4) Essential hypertension: Code(s): I10 - Essential (primary) hypertension Category: Medical (5) Mixed hyperlipidemia: Code(s): E78.2 - Mixed hyperlipidemia Category: Medical (6) History of melanoma: Code(s): Z85.820 - Personal history of malignant melanoma of skin Category: Medical (7) Type 2 diabetes mellitus: Code(s): E11.9 - Type 2 diabetes mellitus without complications Category: Medical Qualifiers: Diabetes mellitus continuous churn buttermaker insulin use: without continuous churn buttermaker use Diabetes mellitus complication status: with kidney complications Diabetes mellitus complication detail: with diabetic microalbuminuria Qualified Code(s): E11.29 - Type 2 diabetes mellitus with other diabetic kidney complication; R80.9 - Proteinuria, unspecified (8) Cough: Code(s): R05.9 - Cough, unspecified (9) Vaginal mass: Code(s): N89.8 - Other specified noninflammatory disorders of vagina Category: Medical Plan The patient has reasonable anxiety after describing her vaginal mass which has led to further evaluation at [facility]. She is going to proceed with the imaging studies recommended, and then they will make a determination about what type of surgical procedure she requires. She will keep me posted about this. We discussed addition of insulin to her regimen to improve glycemic control. She defers at this time due to her current stress level, but she would like to revisit it so we will schedule a follow up in 8 weeks. She will continue her current diabetic medications. She is feeling better after being treated at urgent care for a sinus infection. She has a residual cough, but her lungs are clear and she has no fevers or chills. She will continue supportive care and reach out to me if the symptoms worsen or do not resolve. She will continue her other medications. Follow up in 8 weeks.
[2025-02-23 11:59] VITALS: BP 126/72; PULSE 107; TEMP 36.9; O2SAT 98; BMI 47.0
--- OUTSIDE RECORDS SUMMARY | 2025-02-23 13:49 | XMS_ITS ---
Author Organization [employer] Address [address] [facility] [address] [place] [address] Care Team Providers Care Mail Carrier Technician Name Role Phone JAY RODRIGES PA-C Primary Care Provider Silva Engle [phone] NEEDED IMMANUEL FOR VP OF DIGITAL MARKETING/ONC Encounters Encounter Location Date Provider Diagnosis [facility] [address] [place] [address] 02/06/2025 Silva Estrada Plan Of Treatment Next Appt Details Provider Name:Silva eastman, 12/16/2025 08:40:00 AM, [address] [facility], [address], [place], [address], Progress Notes * INO OREILLYDOB:1975 (49 yo F)Acc No.[id number]:02/06/2025 Patient:?INO OREILLY :1975???Age:49 Y???Sex:Female Address:[address] [place] [address], [address] * * Date:?
--- OUTSIDE RECORDS SUMMARY | 2025-02-23 13:50 | XMS_ITS | Patient Health Record ---
Author Organization [employer] [facility] Address [address] [facility] [address] [place] [address] Care Team Providers Care Commercial Fisherman Name Role Phone JAY RODRIGES PA-C Primary Care Provider Silva Engle Unavailable [phone] Allergies No Known Allergies Results Component Value Reference Range Notes [id number] Reviewed date:02/13/2025 08:16:39 AM Interpretation: Performing Lab:[facility] [address], Phone - [phone], Director - MDJodry Notes/Report: Test(s) 280967-Lyhtnmo B This test was developed and its performance characteristics determined by [facility]. It has not been cleared or approved by the Food and Drug Administration. CEA 0.7 0.0-4.7 ng/mL Nonsmokers <3.9 Smokers <5.6 . [facility] Electrochemiluminescence Immunoassay (ECLIA) . Values obtained with different assay methods or kits cannot be used interchangeably. Results cannot be interpreted as absolute evidence of the presence or absence of malignant disease. Cancer Antigen (CA) [id number] 03 (Not yet reviewed by provider) Interpretation: Performing Lab:[facility] [place], [address] [place] [address], Phone - [phone], Director - MDJodry Notes/Report: Test(s) 987420-Spkcqem B This test was developed and its performance characteristics determined by [facility]. It has not been cleared or approved by the Food and Drug Administration. Cancer Antigen (CA) 125 39.5 0.0-38.1 U/mL [facility] Electrochemiluminescence Immunoassay (ECLIA) . Values obtained with different assay methods or kits cannot be used interchangeably. Results cannot be interpreted as absolute evidence of the presence or absence of malignant disease. Inhibin A, Ultrasensitive-14 6803 Reviewed date:02/13/2025 08:17:14 AM Interpretation: Performing Lab:[facility] [address] [place] [address], Phone - [phone], Director - [facility] Notes/Report: Test(s) 834926-Memtyeg B This test was developed and its performance characteristics determined by [facility]. It has not been cleared or approved by the Food and Drug Administration. Inhibin A, Ultrasensitive 21.1 Menstrual Phase Early Follicular <34.0 Late Follicular <99.0 Periovulatory 8.0-233.0 MidLuteal <145.0 End Luteal <145.0 Postmenopausal <4.0 Inhibin A performed by [employer] Access Automated Immunoassay methodology. Values obtained with different assay methods or kits cannot be used interchangeably. Inhibin B-[id number] Reviewed date:02/13/2025 08:17:02 AM Interpretation: Performing Lab:[facility] [address] [place] [address], Phone - [phone], Director - [facility] Notes/Report: Test(s) 552358-Qkarzfq B This test was developed and its performance characteristics determined by [facility]. It has not been cleared or approved by the Food and Drug Administration. Inhibin B 156.5 Early Follicular <261.0 Late Follicular <286.0 Periovulatory <189.0 MidLuteal <164.0 End Luteal <107.0 Post Menopausal < 17.0 Inhibin B performed by [employer](TM) Enzyme Linked Immunoassay methodology. Values obtained with different assay methods or kits cannot be used interchangeably. LDH-[id number] Reviewed date:02/13/2025 08:16:50 AM Interpretation: Performing Lab:[facility] [address] [place] [address], Phone - [phone], Director [facility] Notes/Report: Test(s) 775004-Ynzrzgp B This test was developed and its performance characteristics determined by [facility]. It has not been cleared or approved by the Food and Drug Administration. LDH 194 119-226 IU/L PDF Report Reviewed date:12/16/2024 01:20:08 PM Interpretation: Performing Lab:[facility], [address], [place], Phone - [phone], [facility] Notes/Report: Clinical Information:VAG/CERV [id number] LMP / Prev Treat...[id number] Dates / Results....2022 No. of containers..01 ThinPrep Vial Urinalysis Reviewed date:12/11/2024 04:06:49 PM Interpretation: Performing Lab: Notes/Report: PH 6 PROTEIN Neg GLUCOSE Neg BLOOD neg [id number]-Yst IGP No Culture 30 Plus Reviewed date:12/16/2024 01:20:24 PM Interpretation: Performing Lab:[facility] [place], [address], [address], [place], Phone - [phone], [facility] Notes/Report: Clinical Information:VAG/CERV [id number] LMP / Prev Treat...[id number]=[id number] Dates / Results....2022 No. of containers..01 ThinPrep Vial DIAGNOSIS: NEGATIVE FOR INTRAEPITHELIAL LESION OR MALIGNANCY. PREDOMINANCE OF COCCOBACILLI CONSISTENT WITH SHIFT IN VAGINAL GRISELDA IS PRESENT. Specimen adequacy: Satisfact ory for evaluation. No endocervical component is identified. Clinician provided ICD10: Z0 1.419 Performed by: Christopher pisano, Delivery Driver [facility] . . Note: The Pap smear is [...] amplification test detects fourteen high-risk HPV types (16,18,31,33,35,39,45,51,52,56,58, 59,66,68) without differentiation. HPV Genotype Reflex Criteria not met, HPV Genotype not performed. PDF Report Reviewed date:02/13/2025 08:13:31 AM Interpretation: Performing Lab:[facility], [address] [place] [address], [place], Phone - [phone], Director - Tiffanie Notes/Report: Test(s) 539612-Hvahzkp B This test was developed and its performance characteristics determined by [facility]. It has not been cleared or approved by the Food and Drug Administration. Reason For Referral No Information Medications Medication [...] 3 DAYS for 10 days 12/11/2024 Active Lisinopril 40 MG 1 tablet Orally Once a day Active Farxiga 10 MG 1 tablet Orally Once a day Active metFORMIN HCl 1000 MG 1 tablet with a me al Orally Once a day Active Levothyroxine Sodium 50 MCG 1 tablet in the morning on an empty stomach Orally Once a day Active Rosuvastatin Calcium 40 MG 1 tablet Oral ly Once a day Active glipiZIDE 10 MG [...] W/U Status Risk Notes Problem Essential hypertension (83819097) Essential (primary) hypertension (I10) Active confirmed Problem Malignant melanoma of skin (06333695) Malignant melanoma of skin, unspecified (C43.9) Active confirmed Problem Morbid obesity (disorder) (152775195) Morbid (severe) obesity due to excess calories (E66.01) Active confirmed Problem Abnormal vaginal bleeding (855445764) Other specified abnormal uterine and vaginal bleeding (N93.8) Active confirmed Vital Signs Temperature 98.0 degrees Fahrenheit 12/11/2024 Blood pressure diastolic 78 mm Hg 12/11/2024 Height 64 in 12/11/2024 Blood pressure systolic 126 mm Hg 12/11/2024 Weight 275 lbs 12/11/2024 BMI 47.2 kg/m2 12/11/2024 Encounters Encounter Location Date Provider Diagnosis [facility] [address] [place] [address] 12/11/2024 Silva Estrada Encounter for gynecological examination (general) (routine) without abnormal findings Z01.419 ; Encounter for screening mammogram for malignant neoplasm of breast Z12.31 ; Other specified abnormal uterine and vaginal bleeding N93.8 ; Acute candidiasis of vulva and vagina B37.31 and Morbid (severe) obesity due to excess calories E66.[address] [address] 02/06/2025 Silva Estrada Other specified abnormal uterine and vaginal bleeding N93.8 and Unspecified ovarian cyst, left side N83.[address] [address] 02/06/2025 Silva Estrada Assessments Encounter Date Diagnosis (ICD Code) Assessment Notes Treatment Notes Treatment Clinical Notes Section Notes 12/11/2024 Encounter for gynecological examination (general) (routine) without abnormal findings (ICD-10 - Z01.419) PAP TEST WITH HPV TYPING WAS OBTAINED. 02/06/2025 Other specified abnormal uterine and vaginal bleeding (ICD-10 - N93.8) HSONO WAS ATTEMPTED BUT THE CERVIX COULD NOT EVEN BE VISUALIZED WELL HER UTERUS IS RETROVERTED AND THE CERVIX IS DISPLACED ANTERIORLY, BEHING THE SYMPHYSIS PUBIS. HSONO WAS DEFERRED. WILL REFER TO [facility] PROFESSOR ONCOLOGY AND ALERT THEM OF HX OF AUB. ANTERIOR FUNDAL SUBSEROUS FIBROID WAS NOTED. 02/06/2025 Unspecified ovarian cyst, left side (ICD-10 - N83.202) DISCUSSED FINDINGS: 5CM CLEAR RIGHT OVARIAN CYST AND 14 CM LEFT HOMOGENEOUS SOLID OVARIAN MASS. TUMOR MARKERS WERE ORDERED. DISCUSSED POSSIBILITY OF OVARIAN MALIGNANCY AND REFERRAL TO [facility]. PAT AGREED. 12/11/2024 Encounter for screening mammogram for malignant [...] Order Date MM Digital Mammo Screening 12/11/2024 Cancer Antigen (CA) [id number] Next Appt Details Provider Name:Silva eastman, 12/16/2025 08:40:00 AM, [address] [facility], [address], [place], [address], Insurance Providers Payer Name Payer Address Payer Phone Subscriber Number Group Number Insured Name Patient Relationship to Insured Coverage Start Date Coverage End Date [facility] [address] [place] [id number] [phone] [id number] INO OREILLY Self - patient is the insured Medical (General) History Medical History History ICD Code Malignant melanoma of skin, unspecified C43.9 Essential (primary) hypertension I10 Disorder of thyroid, unspecified E07.9 Hospitalization History Reason Date(Month/Year) melanoma removal labia 1997
--- OUTSIDE RECORDS SUMMARY | 2025-02-23 13:50 | XMS_ITS ---
Author Organization [employer] [facility] Address [address] [facility] [address] [place] [address] Care Team Providers Care Assistant Professor Of Marine Biology Name Role Phone JAY RODRIGES PA-C Primary Care Provider Silva Engle Unavailable [phone] REASON FOR VISIT HSONO/EB/AUB Encounters Encounter Location Date Provider Diagnosis [facility] [employer] [address] [place] [address] 01/09/2025 Silva Estrada Plan Of Treatment Next Appt Details Provider Name:Silva eastman, 12/16/2025 08:40:00 AM, [address] [place] [address], [address], [place], [address], Progress Notes * INO OREILLYDOB:1975 (49 yo F)Acc No.[id number]:01/09/2025 Patient:?INO OREILLY Appointment Provider:?Silva eastman M.D. :1975???Age:49 Y???Sex:Female D ate:01/09/2025 Address:[address] [place], [place] [id number] Pcp:JAY RODRIGES PA-C Subjective: * Chief Complaints: * ???1. HSONO/EB/AUB. * Medical History:? Objective: * Vitals:? Assessment: Plan: * Treatment: * Images: Billing Information: * Visit Code:? * Procedure Codes:? * Electronic signature of Lizzette Estrada MD on 02/23/2025 at 01:50 PM EDT Sign off status: Pending * Appointment Provider:?Silva Estrada M.D. Date:?01/09/2025 Generated for Erik patrick/Titi/Jimmy on:?02/23/2025 01:50 PM EDT
--- OUTSIDE RECORDS SUMMARY | 2025-02-23 13:50 | XMS_ITS ---
Author Organization [facility] Address [address] [facility] [address] [place] [address] Care Team Providers Care Container Shop Welder Name Role Phone JAY RODRIGES PA-C Primary Care Provider Silva Engle Unavailable [phone] Results Component Value Reference Range Notes Cancer Antigen (CA) 125-0023 03 (Not yet reviewed by provider) Interpretation: Performing Lab:[facility], Phone - [phone], Director - Tiffanie Notes/Report: Test(s) 764636-Bgxqubn B This test was developed and its performance characteristics determined by [facility]. It has not been cleared or approved by the Food and Drug Administration. Cancer Antigen (CA) 125 39.5 0.0-38.1 U/mL [facility] Electrochemiluminescence Immunoassay (ECLIA) . Values obtained with different assay methods or kits cannot be used interchangeably. Results cannot be interpreted as absolute evidence of the presence or absence of malignant disease. LDH-[id number] Reviewed date:02/13/2025 08:16:50 AM Interpretation: Performing Lab:[facility], Phone - [phone], Director - Tiffanie Notes/Report: Test(s) 014268-Ougfsut B This test was developed and its performance characteristics determined by [facility]. It has not been cleared or approved by the Food and Drug Administration. LDH 194 119-226 IU/L CEA-[id number] Reviewed date:02/13/2025 08:16:39 AM Interpretation: Performing Lab:[facility], Phone - [phone], Director - Tiffanie Notes/Report: Test(s) 636634-Myjrujz B This test was developed and its performance characteristics determined by [facility]. It has not been cleared or approved by the Food and Drug Administration. CEA 0.7 0.0-4.7 ng/mL Nonsmokers <3.9 Smokers <5.6 . [facility] Electrochemiluminescence Immunoassay (ECLIA) . Values obtained with different assay methods or kits cannot be used interchangeably. Results cannot be interpreted as absolute evidence of the presence or absence of malignant disease. Inhibin B-963073 Reviewed date:02/13/2025 08:17:02 AM Interpretation: Performing Lab:[facility] [address] [place] [address], Phone - [phone], Director Radha Moreno Notes/Report: Test(s) 503714-Ubojdvu B This test was developed and its performance characteristics determined by [facility]. It has not been cleared or approved by the Food and Drug Administration. Inhibin B 156.5 Early Follicular <261.0 Late Follicular <286.0 Periovulatory <189.0 MidLuteal <164.0 End Luteal <107.0 Post Menopausal < 17.0 Inhibin B performed by [employer](TM) Enzyme Linked Immunoassay methodology. Values obtained with different assay methods or kits cannot be used interchangeably. Inhibin A, Ultrasensitive-14 6803 Reviewed date:02/13/2025 08:17:14 AM Interpretation: Performing Lab:[facility] [address] [place] [address], Phone - [phone], Director Radha Moreno Notes/Report: Test(s) 960255-Yrfetlv B This test was developed and its performance characteristics determined by [facility]. It has not been cleared or approved by the Food and Drug Administration. Inhibin A, Ultrasensitive 21.1 Menstrual Phase Early Follicular <34.0 Late Follicular <99.0 Periovulatory 8.0-233.0 MidLuteal <145.0 End Luteal <145.0 Postmenopausal <4.0 Inhibin A performed by [employer] Access Automated Immunoassay methodology. Values obtained with different assay methods or kits cannot be used interchangeably. PDF Report Reviewed date:02/13/2025 08:13:31 AM Interpretation: Performing Lab:[facility] [address] [place] [address], [place], Phone - [phone], Director Radha Moreno Notes/Report: Test(s) 894385-Asykelf B This test was developed and its [...] Encounters Encounter Location Date Provider Diagnosis [facility] [address] [place] [address] 02/06/2025 Silva Estrada Other specified abnormal uterine [...] PUBIS. HSONO WAS DEFERRED. WILL REFER TO SPA MANAGER/ESTHETICIAN ONCOLOGY AND ALERT THEM OF HX OF AUB. ANTERIOR FUNDAL SUBSEROUS FIBROID WAS NOTED. 02/06/2025 Unspecified ovarian cyst, left side (ICD-10 - N83.202) DISCUSSED FINDINGS: 5CM CLEAR RIGHT OVARIAN CYST AND 14 CM LEFT HOMOGENEOUS SOLID OVARIAN MASS. TUMOR MARKERS WERE ORDERED. DISCUSSED POSSIBILITY OF OVARIAN MALIGNANCY AND REFERRAL TO SPA MANAGER/ESTHETICIAN ONCOLOGY. PAT AGREED. Plan Of Treatment Treatment Notes Assessment Notes Other specified abnormal tejon rine and vaginal bleeding HSONO WAS ATTEMPTED BUT THE CERVIX COULD NOT EVEN BE VISUALIZED WELL HER UTERUS IS RETROVERTED AND THE CERVIX IS DISPLACED ANTERIORLY, BEHING THE SYMPHYSIS PUBIS. HSONO WAS DEFERRED. WILL REFER TO SPA MANAGER/ESTHETICIAN ONCOLOGY AND ALERT THEM OF HX OF AUB. ANTERIOR FUNDAL SUBSEROUS FIBROID WAS NOTED. Unspecified ovarian cyst, left side DISCUSSED FINDINGS: 5CM CLEAR RIGHT OVARIAN CYST AND 14 CM LEFT HOMOGENEOUS SOLID OVARIAN MASS. TUMOR MARKERS WERE ORDERED. DISCUSSED POSSIBILITY OF OVARIAN MALIGNANCY AND REFERRAL TO SPA MANAGER/ESTHETICIAN ONCOLOGY. PAT AGREED. Pending Test Test Name Order Date Cancer Antigen (CA) [id number] Next Appt Details Follow Up: prn, Reason: Provider Name:Silva eastman, 12/16/2025 08:40:00 AM, [address] [facility], [address], [place], [address], Progress Notes * INO OREILLYDOB:1975 (49 yo F)Acc No.[id number]:02/06/2025 Patient:?INO OREILLY Appointment Provider:?Silva eastman M.D. :1975???Age:49 Y???Sex:Female D ate:02/06/2025 Address:[address] [place], [place] [id number] Pcp:JAY RODRIGES PA-C Subjective: * Chief Complaints: [...] * Treatment: 2.?Unspecified ovarian cyst, left side?LAB: [id number] ?LAB: CEA-412683 ?LAB: Cancer Antigen (CA) [id number] ?LAB: Inhibin B-283166 ?LAB: Inhibin A, Ultrasensitive-613262 Notes: DISCUSSED FINDINGS: 5CM CLEAR RIGHT OVARIAN CYST AND 14 CM LEFT HOMOGENEOUS SOLID OVARIAN MASS. TUMOR MARKERS WERE ORDERED. DISCUSSED POSSIBILITY OF OVARIAN MALIGNANCY AND REFERRAL TO SPA MANAGER/ESTHETICIAN ONCOLOGY. PAT AGREED.?? * Procedure Codes:? * Follow Up:?prn * Images: Billing Information: * Visit Code:? * Procedure Codes:? * Sign off status: Completed Addendum: * ? true * Appointment Provider:?Silva Estrada M.D. Date:?02/06/2025 Generated for Erik patrick/Titi/Keithitting on:?02/23/2025 01:49 PM EDT History and Physical Notes * HPI [...]
== END 2025-02-23 12:36 | disposition home or self-care (01) ==
LOC: HO.HMCFM 11:25
PROVIDERS: PCP Physician Assistant Medical; Visit Provider Physician Assistant Medical
DX: E06.3 Autoimmune thyroiditis (principal); E66.01 Morbid (severe) obesity due to excess calories; E11.29 Type 2 diabetes mellitus with other diabetic kidney complication; Z68.42 Body mass index [BMI] 45.0-49.9, adult; R80.9 Proteinuria, unspecified; I10 Essential (primary) hypertension; E78.2 Mixed hyperlipidemia; Z85.820 Personal history of malignant melanoma of skin; R05.9 Cough, unspecified; N89.8 Other specified noninflammatory disorders of vagina

== ENCOUNTER → 2025-02-23 11:24 | Outpatient (BNVA) | payer OTHER, SELFPAY | PROVIDERS: PCP Physician Assistant Medical; Visit Provider Physician Assistant Medical | DX: E06.3 Autoimmune thyroiditis (principal); E66.01 Morbid (severe) obesity due to excess calories; Z68.42 Body mass index [BMI] 45.0-49.9, adult; R80.9 Proteinuria, unspecified; I10 Essential (primary) hypertension; E78.2 Mixed hyperlipidemia; E11.29 Type 2 diabetes mellitus with other diabetic kidney complication; R05.9 Cough, unspecified; N89.8 Other specified noninflammatory disorders of vagina; Z85.820 Personal history of malignant melanoma of skin; Z79.899 Other long term (current) drug therapy | CPT/HCPCS: 96127 ==

== ENCOUNTER 2025-04-06 08:57 | Outpatient (AMB) | payer OTHER, SELFPAY ==
--- NOTE | 2025-04-06 09:02 | MHC.PC.OV ---
Vital Signs 04/06/25 09:16 Height 5 ft 4 in Weight 272 lb 2 oz BMI 46.7 BP 124/62 Blood Pressure Location Rt brachial Position Sitting Respiration 16 Pulse 98 Pulse Source Pulse Oximeter Temp 98.6 F Temp Source Temporal Artery Scan Pulse Oximetry (%) 98 Oxygen Delivery Method Room Air Intake Visit Reasons: diabetes follow up (get ins) Intake Note: Guillermina presents in the office today for a diabetes follow up. Allergies No Known Allergies Allergy (Verified 04/06/25 09:14) Tobacco use date assessed: 04/06/25 Dental Screening Dental Screen Date: 04/06/25 Did you have a dental visit in the last 12 months?: Yes Did you have a dental problem in the last 6 months where you did not have access to dental care?: No Was dental information given to patient?: Patient has dentist HPI HPI Comments History of Present Illness Details This is a 49-year-old female with a past medical history of type 2 diabetes, melanoma, hypertension, hyperlipidemia and hypothyroidism presenting for follow up. Type 2 diabetes-this was diagnosed in 2013. Her hemoglobin A1c 8% 02/16/2025. Her triglycerides decreased from 325 to 313. LDL cholesterol is 78, and HDL is 42. She has normal renal function. She was evaluated by endocrinology. 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 She has microalbuminuria. She is on an EAMON inhibitor. Her current regimen is Farxiga 10 mg, glipizide XL 10 mg twice daily, metformin 1000 mg twice daily and Mounjaro 15 mg weekly. She denies side effects. AM fasting-not checking Glucose after [id number] Hypothyroidism-taking levothyroxine 50 mg once daily. Recent TSH normal. Hypertension-taking lisinopril 30 mg daily. Hydrochlorothiazide discontinued due to hypotension and hypercalcemia. Her blood pressure is normal. Hyperlipidemia-taking Crestor 40 mg daily. LDL at goal. She has hypertriglyceridemia. The patient saw Dr. Estrada in November, and she detected a vaginal mass. She was referred to [facility], but they could not perform a biopsy. She had a CAT scan and chest x-ray, and she underwent hysteroscopy last and is waiting on the results, but she was told they did not think it was cancerous. She was referred for colonoscopy. She goes to [facility] for skin surveillance. No recurrence of skin cancer to date. She is up-to-date with the flu and COVID vaccines through her pharmacy. She received the PPSV23 vaccine in 2014. Tdap is up-to-date. ROS: Constitutional: No unexplained weight loss, fever, chills, fatigue or night sweats. Respiratory: No shortness of breath Cardiovascular: No chest pain Gastrointestinal: No anorexia, nausea, vomiting or diarrhea. No abdominal pain or blood in stool. Neurologic: No headache, dizziness, syncope Hematologic/Lymphatics: No bleeding or bruising Physical exam: Constitutional: Alert, in no distress. Eyes: Pupils are equal, round and reactive to light. Extraocular muscles intact. Ear, Nose and Throat: Canals clear. TMs normal. Normal nasal mucosa. No nasal discharge. No oral lesions. Sinuses nontender Neck: Supple, Full range of motion. No lymphadenopathy. Respiratory: Clear to auscultation. Cardiovascular: S1 S2 regular. No murmurs. Abdomen: Soft, nontender, no palpable masses Extremities: Warm and well perfused. No edema. Psychiatric: Normal mood and affect [facility] Medical History (Updated 04/07/25 @ 14:10 by JOEL Mendoza) Vaginal mass Acute respiratory disease Grade I diastolic dysfunction Abnormal echocardiogram Hypothyroidism Morbid obesity Microalbuminuria Essential hypertension Mixed hyperlipidemia History of melanoma Hepatic steatosis Screening for cardiovascular condition Type 2 diabetes mellitus Surgical History (Updated 07/08/24 @ 09:17 by JOEL Mendoza) History of melanoma excision Family History Maternal Grandfather Lung cancer Mother Type 2 diabetes mellitus Social History (Updated 04/06/25 @ 09:15 by Priya Davis MA) Housing: House Alcohol intake: never Patient Tobacco Use Status: Never used Tobacco e-Cigarette/Vaping Use: Never Used Second Hand Smoke Exposure: No service: No Current occupational status: employed 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 Current occupational exposures/hazards: No Cognitive needs: No Hearing needs: No Vision needs: No Questionnaire Thrive Questionnaire Date Thrive assessed: 11/03/24 I am a: Patient What is your living situation today?: I have a steady place to live Within the past 12 months, did the food you bought not last and you didn't have the money to get more?: Never true Within the past 12 months, did you worry whether your food would run out before you got money to buy more?: Never true Do you have trouble paying for medicines?: No Do you have trouble getting transportation to medical appointments?: No Do you have trouble paying your heating and electricity bill?: No Do you have trouble taking care of your child, family member or friend?: No Do you have trouble with day-to-day activities such as bathing, preparing meals, shopping, managing finances, etc.?: No Are you currently unemployed and looking for a job?: No Are you interested in more education?: No Please select the resources that you would like help with: None Currently or been in a relationship where the following occur: No concerns reported THRIVE Score: 0 YOUSUF-7 AMB Questionnaire YOUSUF-7 Date YOUSUF - 7 assessed: 02/23/25 Source: Developed by Drs. Humphrey Hunter, Swati Morgan, Haja Ellis and colleagues, with an educational mora from [employer]. Physical exam (Primary Care) Vital Signs: Last Vital Signs Temp 98.6 F 04/06/25 09:16 Pulse 98 04/06/25 09:16 Resp 16 04/06/25 09:16 BP 124/62 04/06/25 09:16 Pulse Ox 98 04/06/25 09:16 Oxygen Delivery Method Room Air 04/06/25 09:16 BMI result Body Mass Index 46.7 Tobacco/Smoking Status: Tobacco use Status Tobacco use date assessed 04/06/25 04/06/25 09:19 Patient Tobacco Use Status Never used Tobacco 04/06/25 09:15 e-Cigarette/Vaping Use Never Used 04/06/25 09:15 Thrive Assessment: Date of Thrive Assessment Date Thrive assessed 11/03/24 04/06/25 09:03 Currently or been in a relationship where the following occur: No concerns reported Coding Level of Care Code Est Pt Level 4 (78561) Complex EM visit Add On G2211 Diagnoses 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 Hypothyroidism type: due to [place]'s thyroiditis Morbid obesity E66.01 Microalbuminuria R80.9 Essential hypertension I10 Mixed hyperlipidemia E78.2 History of melanoma Z85.820 Type 2 diabetes mellitus with diabetic microalbuminuria, without long-term current use of insulin E11.29; R80.9 Diabetes mellitus care home insulin use: without care home use Diabetes mellitus complication status: with kidney complications Diabetes mellitus complication detail: with diabetic microalbuminuria Vaginal mass N89.8 Assessment & Plan Assessment & Plan (1) Hypothyroidism: Code(s): E03.9 - Hypothyroidism, unspecified Category: Medical Qualifiers: Hypothyroidism type: due to [place]'s thyroiditis Qualified Code(s): E06.3 - Autoimmune thyroiditis (2) Morbid obesity: Code(s): E66.01 - Morbid (severe) obesity due to excess calories Category: Medical (3) Microalbuminuria: Code(s): R80.9 - Proteinuria, unspecified Category: Medical (4) Essential hypertension: Code(s): I10 - Essential (primary) hypertension Category: Medical (5) Mixed hyperlipidemia: Code(s): E78.2 - Mixed hyperlipidemia Category: Medical (6) History of melanoma: Code(s): Z85.820 - Personal history of malignant melanoma of skin Category: Medical (7) Type 2 diabetes mellitus: Code(s): E11.9 - Type 2 diabetes mellitus without complications Category: Medical Qualifiers: 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 She is feeling less anxious since having the hysteroscopy. We discussed addition of insulin to her regimen to improve glycemic control. She defers at this time until after results of pathology are given but she would like to revisit this in 6 weeks. She will continue her current diabetic meds. Continue to decrease carbs and sugars in the diet to help improve triglycerides. Advised patient we may need to add fish oil or fenofibrate. Hypertension is well-controlled. Follow up in 6 weeks. She will have fasting lab work drawn prior to this. Orders: Orders Lipid Panel 04/06/25 E78.5 - Hyperlipidemia, unspecified, R80.9 - Proteinuria, unspecified Hemoglobin A1c 04/06/25 E11.9 - Type 2 diabetes mellitus without complications, R80.9 - Proteinuria, unspecified Basic Metabolic Panel 04/06/25 R80.9 - Proteinuria, unspecified
--- OUTSIDE RECORDS SUMMARY | 2025-04-06 09:12 | XMS_ITS ---
Author Organization [facility] Address [address] [place] [address] Care Team Providers Care Wood Sash And Frame Carpenter Name Role Phone JAY RODRIGES PA-C Primary Care Provider Silva Engle Unavailable [phone] REASON FOR VISIT HSONO/EB/AUB Encounters Encounter Location Date Provider Diagnosis [facility] [address] [place] [address] 01/09/2025 Silva Estrada Plan Of Treatment Next Appt Details Provider Name:Silva eastman, 12/16/2025 08:40:00 AM, [address] [place] [address], [address], [place], [address], Progress Notes * INO OREILLYDOB:1975 (49 yo F)Acc No.[id number]:01/09/2025 Patient:?INO OREILLY Appointment Provider:?Silva eastman M.D. :1975???Age:49 Y???Sex:Female D ate:01/09/2025 Address:[address] [place], [place] [id number] Pcp:JAY RODRIGES PA-C Subjective: * Chief Complaints: * ???1. HSONO/EB/AUB. * Medical History:? Objective: * Vitals:? Assessment: Plan: * Treatment: * Images: Billing Information: * Visit Code:? * Procedure Codes:? * Electronic signature of Lizzette Estrada MD on 04/06/2025 at 09:11 AM EDT Sign off status: Pending * Appointment Provider:?Silva Estrada M.D. Date:?01/09/2025 Generated for Erik patrick/Titi/Jimmy on:?04/06/2025 09:11 AM EDT
[2025-04-06 09:16] VITALS: BP 124/62; PULSE 98; RESP 16; TEMP 37; O2SAT 98; BMI 46.7
== END 2025-04-06 09:48 | disposition home or self-care (01) ==
PROVIDERS: PCP Physician Assistant Medical; Visit Provider Physician Assistant Medical
DX: E11.29 Type 2 diabetes mellitus with other diabetic kidney complication (principal); E66.01 Morbid (severe) obesity due to excess calories; Z68.42 Body mass index [BMI] 45.0-49.9, adult; E06.3 Autoimmune thyroiditis; R80.9 Proteinuria, unspecified; I10 Essential (primary) hypertension; E78.2 Mixed hyperlipidemia; Z85.820 Personal history of malignant melanoma of skin; N89.8 Other specified noninflammatory disorders of vagina

== ENCOUNTER 2025-07-28 07:45 | Outpatient (REF) | payer OTHER, SELFPAY ==
--- OUTSIDE RECORDS SUMMARY | 2025-01-09 04:30 | XMS_ITS ---
Author Organization [employer] [facility] Address [address] [place] [address] Care Team Providers Care Drum Operator Name Role Phone JAY RODRIGES PA-C Primary Care Provider Silva Engle Unavailable [phone] REASON FOR VISIT HSONO/EB/AUB Encounters Encounter Location Date Provider Diagnosis [facility] [employer] [address] [place] [address] 01/09/2025 Silva Estrada Plan Of Treatment Next Appt Details Provider Name:Silva khansirena, 12/16/2025 08:40:00 AM, [address] [place] [address], [address], [place], [address], Progress Notes * INO OREILLYDOB:1975 (49 yo F)Acc No.[id number]:01/09/2025 Patient: INO TILLEY Appointment Provider: Sirena Estrada M.D. :1975 A ge:49 Y S ex:Female Date:01/09/2025 Address:[address] [place], [place] [address] Pcp:JAY RODRIGES PA-C Subjective: * Chief Complaints: * 1 . HSONO/EB/AUB. * Medical History: Objective: * Vitals: Assessment: Plan: * Treatment: * Images: Billing Information: * Visit Code: * Procedure Codes: * Electronic signature of Lizzette Estrdaa MD on 07/28/2025 at 07:54 AM EDT Sign off status: Pending * Appointment Provider: Sirena Estrada M.D. Date: 0 01/09/2025 Generated for Erik patrick/Titi/Jimmy on: 0 07/28/2025 07:54 AM EDT
--- OUTSIDE RECORDS SUMMARY | 2025-01-09 04:40 | XMS_ITS ---
Author Organization [facility] [facility] Address [address] [place] [address] Care Team Providers Care Detective Precinct Name Role Phone JAY RODRIGES PA-C Primary Care Provider Silva Engle Unavailable [phone] REASON FOR VISIT HSONO/EB/AUB Encounters Encounter Location Date Provider Diagnosis [facility] [address] [place] [address] 01/09/2025 Silva Estrada Plan Of Treatment Next Appt Details Provider Name:Silva khansirena, 12/16/2025 08:40:00 AM, [address] [place] [address], [address], [place], [address], Progress Notes * INO OREILLYDOB:1975 (49 yo F)Acc No.[id number]:01/09/2025 Patient: INO TILLEY Appointment Provider: Sirena Estrada M.D. :1975 A ge:49 Y S ex:Female Date:01/09/2025 Address:[address] [place], [place] [id number] Pcp:JAY RODRIGES PA-C Subjective: * Chief Complaints: * 1 . HSONO/EB/AUB. * Medical History: Objective: * Vitals: Assessment: Plan: * Treatment: * Images: Billing Information: * Visit Code: * Procedure Codes: * Electronic signature of Lizzette Estrada MD on 07/28/2025 at 07:54 AM EDT Sign off status: Pending * Appointment Provider: Sirena Estrada M.D. Date: 0 01/09/2025 Generated for Erik patrick/Titi/Jimmy on: 0 07/28/2025 07:54 AM EDT
--- OUTSIDE RECORDS SUMMARY | 2025-07-28 07:54 | XMS_ITS | Clinical Summary ---
Author Organization [facility] Address [address] [place] [address] Phone Care Team Providers Care Lease Attendant Name Role Phone Shaina Davila MD Primary Care Provider [phone] Surgical History Surgery Date Site/Laterality Comments OTHER SURGICAL HISTORY PROCEDURE: PA EXCISION MALIGNANT LESION S/N/H/F/G 1.1-2.0 CM; COMMENT: melanoma, 1996 and removed from genitals OTHER SURGICAL HISTORY age 21 PROCEDURE: HISTORICAL MELANOMA Medical History Medical History Date Comments Obesity 10/30/2007 DX:Obesity High cholesterol 10/30/2007 DX:High cholest keira Essential hypertension, benign D X:Essential hypertension, benign Personal history of malignan t melanoma of skin 1996 DX:Personal history of malig nant melanoma of skin Type II or unspecified type diabetes mellitus without mention of complication, uncontrolled 05/14/2012 DX:Type II or unspecified t ype diabetes mellitus without mention of complication, uncontrolled Melanoma (CMS/HCC V24, CMS/HCC V28) 1997 DX:Melanoma (HCC); COMMENT: labia SETHI (nonalcoholic steatohepatitis) 03/16/2015 DX:SETHI (nonalcoholic steatohepatitis) Family History Medical History Relation Name Comments Hyperlipidemia Maternal Grandfather Lung cancer Maternal Grandfather Other cancer Maternal Grandfather Hyperlipidemia Maternal Grandmother Lung cancer Maternal Grandmother Diabetes Mother Hypertension Mother Breast cancer Neg Hx Colon cancer Neg Hx Ovarian cancer Neg Hx Relation Name Status Comments Maternal Grandfather (Age 81) valeriy ng cancer Maternal Grandmother (Age 80) ch ol Mother Alive chol, htn Social History Tobacco Use Types Packs/Day Years Used Date Smoking Tobacco: Never Smokeless Tobacco: Never Alcohol Use Standard Drinks/Week Comments No 0 (1 standard drink = 0.6 oz pur e alcohol) Comments Unknown Sex and Gender Information Value Date Recorded Sex Assigned at Not on file Legal Sex Female 5:35 PM EST Gender Identity Not on file Sexual Orientation Not on file Obstetrics History Last Filed Vital Signs Vital Sign Reading Time Taken Comments Blood Pressure 100/62 05/17/2023 3:48 PM EDT Pulse 75 05/16/2022 1:58 PM EDT Temperature - - Respiratory Rate - - Oxygen Saturation - - Inhaled Oxygen Concentration - - Weight 127 kg (280 lb 3.2 oz) 05/17/2023 3:48 PM EDT Height 162.6 cm (5' 4 ) 05/17/2023 3:48 PM EDT Body Mass Index 48.1 05/17/2023 3:48 PM EDT Plan of Treatment Health Maintenance Due Date Last Done Comments Colorectal Cancer Screening: Colonoscopy 1977 Diabetes: Annual GFR (Glomerular Filtration Rate) 1977 Diabetes: Annual Foot Exam 1987 Diabetes: Annual Retina Eye Exam 1987 Hepatitis A Vaccines (1 of 2 - Risk 2-dose series) 1996 Hepatitis B Vaccines (1 of 3 - 19+ 3-dose series) 1996 Cervical Cancer Screening: HPV 1998 Cholesterol Screening (Lipid Panel) 10/07/2022 HIV Screening 10/07/2022 Hepatitis C Screening 10/07/2022 Social Influencers of Health Screening 10/07/2022 Hypertension/CHF/CAD Annual BMP Blood Test 10/08/2022 Diabetes: Annual Urine Albumin-Creatinine Ratio (uACR) 10/12/2022 Diabetes: Blood Sugar Control Test (HGBA1C) 10/12/2022 Depression Screening 10/29/2024 Influenza Vaccine (#1) 2025 4, 06/29/2023, 07/26/2022, Additional history exists Breast Cancer Screening 09/18/2025 09/18/20 23, 04/07/2022, 04/01/2021, Additional history exists DTaP,Tdap,and Td Vaccines (4 - Td or Tdap) 11/03/2034 11/03/2024, 01/09/2014, 10/29/2005 RSV Immunization Adult Patients (1 - 1-dose 75+ series) 2052 Pneumococcal Vaccine: Pediatrics (0 to 5 Years) and At-Risk Patients (6 to 49 Years) Aged Out 01/09/2014 No longer eligible based on patient's age to complete this topic COVID-19 Vaccine Completed 07/17/2024, 10/2022, 07/19/2022, Additional history exists HIB Vaccines Aged Out No longer eligi ble based on patient's age to complete this topic HPV Vaccines Aged Out No longer eligi ble based on patient's age to complete this topic IPV Vaccines Aged Out No longer eligi ble based on patient's age to complete this topic MMR Vaccines Aged Out No longer eligi ble based on patient's age to complete this topic Meningococcal ACWY Vaccine Aged Out N o longer eligible based on patient's age to complete this topic Meningococcal B Vaccine Aged Out No l onger eligible based on patient's age to complete this topic RSV Immunization Patients Under 20 months Aged Out No longer eligible based on patient's age to complete this topic Varicella Vaccines Aged Out No longer eligible based on patient's age to complete this topic Procedures Procedure Name Priority Date/Time Associated Diagnosis Comments SCREENING MAMMOGRAPHY BI 2-VIEW BREAST INC CAD Routine 09/18/2023 7:24 PM EST Encounter for screening mammogram for malignant neoplasm of breast from Last 3 Months or Most Recently Relevant to Health Maintenance Results * SCREENING MAMMOGRAPHY BI 2-VIEW BREAST INC CAD (09/18/2023 7:24 PM EST) Anatomical Region Laterality Modality Radiographic Joslyn ging 04/07/2022 3:32 PM EDT Narrative 09/19/2023 12:27 PM EST This is a summary report. The complete report is available in the patient's medical record. If you cannot access the medical record, please contact the sending organization for a detailed fax or copy. BILATERAL 3D DIGITAL SCREENING MAMMOGRAM History: Routine screening. No current breast complaints. Comparison: Multiple priors dating back to 12/18/2018 Technique: Bilateral full-field digital 3D mammography was performed using standard CC and MLO projections, right breast exaggerated cc CAD was used to evaluate this mammogram. Findings: Density: There are scattered areas of fibroglandular density-B RIGHT: No suspicious masses, groups of microcalcification or areas of architectural distortion identified. Stable typically benign parenchymal asymmetries LEFT: No suspicious masses, groups of microcalcifications or areas of architectural distortion identified. Stable typically benign parenchymal asymmetries IMPRESSION: : 1. No mammographic evidence of malignancy. BI-RADS Category 2 benign findings Recommendation: Routine annual screening mammography is recommended Procedure Note Nikki Chambers MD - 12/04/2023 This is a summary report. The complete report is available in thepatient's medical record. If you cannot access the medical record, pleasecontact the sending organization for a detailed fax or copy. BILATERAL 3D DIGITAL SCREENING MAMMOGRAM History: Routine screening. No current breast complaints. Comparison: Multiple priors dating back to 12/18/2018 Technique: Bilateral full-field digital 3D mammography was performed usingstandard CC and MLO projections, right breast exaggerated cc CAD was used to evaluate this mammogram. Findings: Density: There are scattered areas of fibroglandular density-B RIGHT: No suspicious masses, groups of microcalcification or areas ofarchitectural distortion identified. Stable typically benign parenchymalasymmetries LEFT: No suspicious masses, groups of microcalcifications or areas ofarchitectural distortion identified. Stable typically benign parenchymalasymmetries IMPRESSION: : 1. No mammographic evidence of malignancy. BI-RADS Category 2 benign findings Recommendation: Routine annual screening mammography is recommended Opal Rodriguez DO IMG XR PROCEDURES Final Resul t from Last 3 Months or Most Recently Relevant to Health Maintenance Care Teams Lease Attendant Relationship Specialty Start Date End Date Shaina Davila MD PCP - General 10/28/07
--- OUTSIDE RECORDS SUMMARY | 2025-07-28 07:54 | XMS_ITS | Patient Health Record ---
Author Organization [facility] Address [address] [place] [address] Care Team Providers Care Olap Developer Name Role Phone JAY RODRIGES PA-C Primary Care Provider Silva Engle Unavailable [phone] Allergies No Known Allergies Results Component Value Reference Range Notes Urinalysis Reviewed date:12/11/2024 04:06:49 PM Interpretation: Performing Lab: Notes/Report: PH 6 PROTEIN Neg GLUCOSE Neg BLOOD neg [id number] IGP No Culture 30 Plus Reviewed date:12/16/2024 01:20:24 PM Interpretation: Performing Lab:[facility] [place], [address], [address], [place], Phone - [phone], Director - [facility] Notes/Report: Clinical Information:VAG/CERV [id number] LMP / Prev Treat...STF=[id number] Dates / Results....2022 No. of containers..01 ThinPrep Vial DIAGNOSIS: NEGATIVE FOR INTRAEPITHELIAL LESION OR MALIGNANCY. PREDOMINANCE OF COCCOBACILLI CONSISTENT WITH SHIFT IN VAGINAL GRIESLDA IS PRESENT. Specimen adequacy: Satisfact ory for evaluation. No endocervical component is identified. Clinician provided ICD10: Z0 1.419 Performed by: Christopher pisano, Hay Baler (ASCP) . . Note: The Pap smear is [...] date:02/13/2025 08:13:31 AM Interpretation: Performing Lab:[facility], [address] [facility] [place], Phone - [phone], Director - Tiffanie Notes/Report: Test(s) 170624-Euuwewm B This test was developed and its performance characteristics determined by [facility]. It has not been cleared or approved by the Food and Drug Administration. PDF Report Reviewed date:12/16/2024 01:20:08 PM Interpretation: Performing Lab:[facility], [address], [place], Phone - [phone], [facility] - [facility] Notes/Report: Clinical Information:VAG/CERV [id number] LMP / Prev Treat...KHY=[id number] Dates / Results....2022 No. of containers..01 ThinPrep Vial Inhibin A, Ultrasensitive-14 6803 Reviewed date:02/13/2025 08:17:14 AM Interpretation: Performing Lab:[facility], [facility], Phone - [phone], Director Radha Moreno Notes/Report: Test(s) 135121-Cegjpis B This test was developed and its performance characteristics determined by [facility]. It has not been cleared or approved by the Food and Drug Administration. Inhibin A, Ultrasensitive 21.1 Menstrual Phase Early Follicular <34.0 Late Follicular <99.0 Periovulatory 8.0-233.0 MidLuteal <145.0 End Luteal <145.0 Postmenopausal <4.0 Inhibin A performed by [employer] Access Automated Immunoassay methodology. Values obtained with different assay methods or kits cannot be used interchangeably. Inhibin B-000697 Reviewed date:02/13/2025 08:17:02 AM Interpretation: Performing Lab:[facility], [address] [facility], Phone - [phone], Director Radha Moreno Notes/Report: Test(s) 193103-Xnhgybl B This test was developed and its performance characteristics determined by [facility]. It has not been cleared or approved by the Food and Drug Administration. Inhibin B 156.5 Early Follicular <261.0 Late Follicular <286.0 Periovulatory <189.0 MidLuteal <164.0 End Luteal <107.0 Post Menopausal < 17.0 Inhibin B performed by [employer](TM) Enzyme Linked Immunoassay methodology. Values obtained with different assay methods or kits cannot be used interchangeably. Cancer Antigen (CA) 125-0023 03 Reviewed date:03/04/2025 04:20:51 PM Interpretation: Performing Lab:[facility], Phone - [phone], Director - [facility] Notes/Report: Test(s) 888466-Xfeujun B This test was developed and its performance characteristics determined by [facility]. It has not been cleared or approved by the Food and Drug Administration. Cancer Antigen (CA) 125 39.5 0.0-38.1 U/mL [employer] Electrochemiluminescence Immunoassay (ECLIA) . Values obtained with different assay methods or kits cannot be used interchangeably. Results cannot be interpreted as absolute evidence of the presence or absence of malignant disease. CEA-[id number] Reviewed date:02/13/2025 08:16:39 AM Interpretation: Performing Lab:[facility], Phone - [phone], Director - [facility] Notes/Report: Test(s) 641092-Rsmqoqs B This test was developed and its performance characteristics determined by [facility]. It has not been cleared or approved by the Food and Drug Administration. CEA 0.7 0.0-4.7 ng/mL Nonsmokers <3.9 Smokers <5.6 . [employer] Electrochemiluminescence Immunoassay (ECLIA) . Values obtained with different assay methods or kits cannot be used interchangeably. Results cannot be interpreted as absolute evidence of the presence or absence of malignant disease. LDH-[id number] Reviewed date:02/13/2025 08:16:50 AM Interpretation: Performing Lab:[facility] [address], Phone - [phone], Director - [facility] Notes/Report: Test(s) 926088-Hrhsyqu B This test was developed and its performance characteristics determined by [facility]. It has not been cleared or approved by the Food and Drug Administration. LDH 194 119-226 IU/L Reason For Referral No Information Medications Medication SIG (Take, Route, Frequency, Duration) Notes Start Date End Date Status miSOPROStol 200 MCG 2 TABLETS Orally NIG HT BEFORE PROCEDURE; Duration: 1 days 12/11/2024 Active Farxiga 10 MG 1 tablet Orally Once a day Active metFORMIN HCl 1000 MG 1 tablet with a me al Orally Once a day Active glipiZIDE 10 MG 1 tablet 30 minutes before breakfast Orally Once a day Active Depo-Provera 150 MG/ML 150 MG Intramuscu lar EVERY 3 MONTHS; Duration: 90 days 05/06/2025 Active Lisinopril 40 MG 1 tablet Orally Once a day Active Levothyroxine Sodium 50 MCG 1 tablet in the morning on an empty stomach Orally Once a day Active Rosuvastatin Calcium 40 MG 1 tablet Orally Once a day Active Clotrimazole-Betamethasone 1-0.05 % 1 application to affected area Externally TWICE A DAY FOR 1 TO 2 WEEKS; Duration: 14 days 12/11/2024 Active Diflucan 150 MG 1 tablet Orally EVER Y 3 DAYS; Duration: 10 days 12/11/2024 Active Social History Tobacco Use: [...] Problem Status W/U Status Risk Notes Problem Excessive and frequent menstruation (668458576) Excessive and frequent menstruation with regular cycle (N92.0) Active confirmed Problem Essential hypertension (59940121) Essential (primary) hypertension (I10) Active confirmed Problem Malignant melanoma of skin (56694049) Malignant melanoma of skin, unspecified (C43.9) Active confirmed Problem Morbid obesity (disorder) (956864135) Morbid (severe) obesity due to excess calories (E66.01) Active confirmed Problem Abnormal vaginal bleeding (288715113) Other specified abnormal uterine and vaginal bleeding (N93.8) Active confirmed Vital Signs Temperature 98.0 degrees Fahrenheit 05/06/2025 Blood pressure diastolic 70 mm Hg 05/06/2025 Height 64 in 05/06/2025 Blood pressure systolic 108 mm Hg 05/06/2025 Weight 273 lbs 05/06/2025 BMI 46.86 kg/m2 05/06/2025 Encounters Encounter Location Date Provider Diagnosis Total [address] [address] 12/11/2024 Silva Estrada Encounter for gynecological examination (general) (routine) without abnormal findings Z01.419 ; Encounter for screening mammogram for malignant neoplasm of breast Z12.31 ; Other specified abnormal uterine and vaginal bleeding N93.8 ; Acute candidiasis of vulva and vagina B37.31 and Morbid (severe) obesity due to excess calories E66.[address] [address] 02/06/2025 Silva Estrada Other specified abnormal uterine and vaginal bleeding N93.8 and Unspecified ovarian cyst, left side N83.[address] [address] 05/06/2025 Silva Estrada Excessive and freque nt menstruation with regular cycle N92.0 and Leiomyoma of uterus, unspecified D25.[address] [address] 02/06/2025 Silva Estrada Total [address] [address] 04/23/2025 Silva Estrada Total [address] [address] 05/06/2025 Silva Wattva Total [address] [address] 05/06/2025 Silva Estrada Assessments Encounter Date Diagnosis (ICD [...] PUBIS. HSONO WAS DEFERRED. WILL REFER TO [facility] AND ALERT THEM OF HX OF AUB. ANTERIOR FUNDAL SUBSEROUS FIBROID WAS NOTED. 05/06/2025 Excessive and frequent menstruation with regular cycle (ICD-10 - N92.0) DISCUSSED NEED TO CONTROL HEAVY MENSES AND TX OPTIONS INCLUDING MIRENA IUD, DEPO PROVERA, ORAL PROGESTINS WERE DISCUSSED. AFTER THOROUGH DISCUSSION, THE BEST OPTION WOULD BE DEPO PROVERA. SHE HAS NO CONTRAINDICATIONS AND ACCEPTS RISKS. SHE UNDERSTANDS SHE MAY HAVE OFF AND ON VAGINAL BLEEDING. RX WAS GIVEN. SHE WILL RETURN FOR HER FIRST DEPO PROVERA SHOT TOMORROW. 05/06/2025 Leiomyoma of uterus, unspecified (ICD-10 - D25.9) DISCUSSED MULTIPLE FIBROIDS NOTED ON CT SCAN AND PELVIC ULTRASOUND AND HOW THESE CAN CAUSE MENORRHAGIA. REASSURED PAT THAT FIBROIDS ARE BENIGN. 02/06/2025 Unspecified ovarian cyst, left side (ICD-10 - N83.202) DISCUSSED FINDINGS: 5CM CLEAR RIGHT OVARIAN CYST AND 14 CM LEFT HOMOGENEOUS SOLID OVARIAN MASS. TUMOR MARKERS WERE ORDERED. DISCUSSED POSSIBILITY OF OVARIAN MALIGNANCY AND REFERRAL TO [facility]. PAT AGREED. 12/11/2024 Encounter for screening [...] 12/11/2024 Next Appt Details Provider Name:Silva eastman, 12/16/2025 08:40:00 AM, [address], [address], [place], [address], Insurance Providers Payer Name Payer Address Payer Phone Subscriber Number Group Number Insured Name Patient Relationship to Insured Coverage Start Date Coverage End Date [facility] [address] [place] [address] [id number] INO OREILLY Self - patient is the insured 5 Medical (General) History Medical History History ICD Code Malignant melanoma of skin, unspecified C43.9 Essential (primary) hypertension I10 Disorder of thyroid, unspecified E07.9 Morbid (severe) obesity due to excess ca lories E66.01 Other specified abnormal uterine and vag inal bleeding N93.8 Unspecified ovarian cyst, left side N83. 202 Hospitalization History Reason Date(Month/Year) melanoma removal labia 1996
[2025-07-28 12:11] LABS: Anion Gap 14 (12-20); Blood Urea Nitrogen 14 mg/dL (9-16); Calcium 9.9 mg/dL (8.4-10.2); Carbon Dioxide 24 mmol/L (22-29); Chloride 104 mmol/L (96-108); Cholesterol 178 mg/dL (<200); Estimated Glomerular Filt Rate > 60; HDL Cholesterol 42 mg/dL (>40); Potassium 3.8 mmol/L (3.3-5.1); Sodium 138 mmol/L (135-145); Triglycerides 292 mg/dL (<150)
== END 2025-07-28 07:46 | disposition home or self-care (01) ==
LOC: HO.WFDLDS 07:45
PROVIDERS: Visit Provider Physician Assistant Medical
DX: E78.5 Hyperlipidemia, unspecified (principal); E11.9 Type 2 diabetes mellitus without complications; R80.9 Proteinuria, unspecified
CPT/HCPCS: 36415; 80048; 80061; 83036

== ENCOUNTER 2025-09-07 11:32 | Outpatient (AMB) | payer OTHER, SELFPAY ==
--- NOTE | 2025-09-07 11:51 | MHC.PC.OV ---
Vital Signs 09/07/25 11:54 09/07/25 12:24 09/07/25 12:24 Height 5 ft 4 in Weight 276 lb 4 oz BMI 47.4 BP 116/78 Blood Pressure Location Rt brachial Position Sitting Respiration 16 Pulse 106 H 101 H Pulse Source Pulse Oximeter Temp 97.5 F Temp Source Temporal Artery Scan Pulse Oximetry (%) 94 96 Oxygen Delivery Method Room Air Intake Visit Reasons: Type II diabetes Intake Note: Guillerimna presents in the office today for a follow up to diabetes. Allergies No Known Allergies Allergy (Verified 09/07/25 11:52) Medication List - Last Reconciled 09/07/25 by JOEL Mendoza blood-glucose sensor ([employer] Jamil 3 Plus Sensor device) Apply 1 new sensor every 15 days as directed to monitor blood glucose continuously. blood-glucose,hospitality workers,cont (FreeStyle Jamil 3 [place]) Use daily to monitor blood glucose levels continuously. dapagliflozin propanediol (Farxiga) 10 mg PO DAILY glipizide ER 10 mg PO DAILY glucose (Dex4 Glucose Quick Dissolve) 16 grams (4 x 4 gram) PO Q15M PRN insulin degludec (Tresiba FlexTouch U-100 insulin) 10 units (0.1 mL) subcut BEDTIME levothyroxine (Synthroid) 50 mcg PO DAILY lisinopril 30 mg PO DAILY metformin 1,000 mg PO BID 90 days pen needle, diabetic As directed to inject insulin once daily rosuvastatin 40 mg PO DAILY 90 days tirzepatide (Mounjaro) 15 mg (0.5 mL) subcut QWEEK Tobacco use date assessed: 09/07/25 Dental Screening Dental Screen Date: 09/07/25 Did you have a dental visit in the last 12 months?: Yes Did you have a dental problem in the last 6 months where you did not have access to dental care?: No Was dental information given to patient?: Patient has dentist HPI HPI Comments History of Present Illness Details This is a 49-year-old female with a past medical history of type 2 diabetes, melanoma, hypertension, hyperlipidemia and hypothyroidism presenting for follow up. Type 2 diabetes-this was diagnosed in 2013. Her hemoglobin A1c is 8.5%, chronically uncontrolled. She was evaluated by endocrinology in the past. She has microalbuminuria. She is on an EAMON inhibitor. Her current regimen is Farxiga 10 mg (out of this for a couple weeks due to insurance), glipizide XL 10 mg twice daily, metformin 1000 mg twice daily and Mounjaro 15 mg weekly. She denies side effects. She uses a glucometer. Rare hypoglycemia. Hypothyroidism-taking levothyroxine 50 mg once daily. Recent TSH normal. Hypertension-taking lisinopril 30 mg daily. Hydrochlorothiazide discontinued due to hypotension and hypercalcemia. Her blood pressure is normal. Hyperlipidemia-taking Crestor 40 mg daily. LDL at goal. Triglycerides improved. The patient saw Dr. Estrada in November, and she detected a vaginal mass. She was referred to [facility]. She was since diagnosed with a right ovarian cyst that is being monitored. Biopsy was negative. On August 03 she had surgery to remove uterine fibroids. She has a follow up in 6 months. She goes [facility]. No recurrence of skin cancer to date. She is up-to-date with the flu and COVID vaccines through her pharmacy. She received the PPSV23 vaccine in 2013. Tdap is up-to-date. ROS: Constitutional: No unexplained weight loss, fever, chills, fatigue or night sweats. Respiratory: No shortness of breath Cardiovascular: No chest pain Gastrointestinal: No anorexia, nausea, vomiting or diarrhea. No abdominal pain or blood in stool. Neurologic: No headache, dizziness, syncope Hematologic/Lymphatics: No bleeding or bruising Physical exam: Constitutional: Alert, in no distress. Eyes: Extraocular movements intact Neck: Supple, Full range of motion. No lymphadenopathy. Respiratory: Clear to auscultation. Cardiovascular: S1 S2 regular. No murmurs. Extremities: Warm and well perfused. No edema. Psychiatric: Normal mood and affect [facility] Medical History (Updated 09/07/25 @ 13:41 by JOEL Mendoza) Uncontrolled type 2 diabetes mellitus with hyperglycemia Vaginal mass Acute respiratory disease Grade I diastolic dysfunction Abnormal echocardiogram Hypothyroidism Morbid obesity Microalbuminuria Essential hypertension Mixed hyperlipidemia History of melanoma Hepatic steatosis Screening for cardiovascular condition Type 2 diabetes mellitus Surgical History (Updated 07/08/24 @ 09:17 by JEOL Mendoza) History of melanoma excision Family History Maternal Grandfather Lung cancer Mother Type 2 diabetes mellitus Social History (Updated 09/07/25 @ 11:54 by Priya Davis [facility]) Housing: House Alcohol intake: never Patient Tobacco Use Status: Never used Tobacco e-Cigarette/Vaping Use: Never Used Second Hand Smoke Exposure: No service: No Current occupational status: employed 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 Current occupational exposures/hazards: No Cognitive needs: No Hearing needs: No Vision needs: No Questionnaire Thrive Questionnaire Date Thrive assessed: 11/03/24 I am a: Patient What is your living situation today?: I have a steady place to live Within the past 12 months, did the food you bought not last and you didn't have the money to get more?: Never true Within the past 12 months, did you worry whether your food would run out before you got money to buy more?: Never true Do you have trouble paying for medicines?: No Do you have trouble getting transportation to medical appointments?: No Do you have trouble paying your heating and electricity bill?: No Do you have trouble taking care of your child, family member or friend?: No Do you have trouble with day-to-day activities such as bathing, preparing meals, shopping, managing finances, etc.?: No Are you currently unemployed and looking for a job?: No Are you interested in more education?: No Please select the resources that you would like help with: None Currently or been in a relationship where the following occur: No concerns reported THRIVE Score: 0 YOUSUF-7 AMB Questionnaire YOUSUF-7 Date YOUSUF - 7 assessed: 02/23/25 Source: Developed by Drs. Humphrey Hunter, Swati Morgan, Haja Ellis and colleagues, with an educational mora from [employer]. Physical exam (Primary Care) Vital Signs: Last Vital Signs Temp 97.5 F 09/07/25 11:54 Pulse 101 H 09/07/25 12:24 Resp 16 09/07/25 11:54 BP 116/78 09/07/25 11:54 Pulse Ox 96 09/07/25 12:24 Oxygen Delivery Method Room Air 09/07/25 11:54 BMI result Body Mass Index 47.4 Tobacco/Smoking Status: Tobacco use Status Tobacco use date assessed 09/07/25 09/07/25 11:55 Patient Tobacco Use Status Never used Tobacco 09/07/25 11:54 e-Cigarette/Vaping Use Never Used 09/07/25 11:54 Thrive Assessment: Date of Thrive Assessment Date Thrive assessed 11/03/24 09/07/25 11:51 Currently or been in a relationship where the following occur: No concerns reported Results Reviewed Results Reviewed: Laboratory Tests 10/28/24 02/16/25 07/28/25 08:24 09:26 07:40 Creatinine Estimated GFR Hemoglobin A1c % 8.6 H 8.0 H 8.5 H AST 27 ALT 27 Triglycerides Cholesterol LDL Cholesterol, Calc HDL Cholesterol 07/28/25 07:49 Creatinine 0.65 Estimated GFR > 60 Hemoglobin A1c % AST ALT Triglycerides 292 H Cholesterol 178 LDL Cholesterol, Calc 78 HDL Cholesterol 42 Coding Level of Care Code Est Pt Level 4 (12966) Complex EM visit Add On G2211 Diagnoses 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 Continue levothyroxine. (2) Morbid obesity: Code(s): E66.01 - Morbid (severe) obesity due to excess calories Category: Medical Plan: Continue to decrease portion sizes, exercise to promote weight loss, continue GLP 1. (3) Microalbuminuria: Code(s): R80.9 - Proteinuria, unspecified Category: Medical Plan: Patient is on an EAMON inhibitor. (4) Essential hypertension: Code(s): I10 - Essential (primary) hypertension Category: Medical Plan: Controlled. Continue current regimen. (5) Mixed hyperlipidemia: Code(s): E78.2 - Mixed hyperlipidemia Category: Medical Plan: Triglycerides improved. LDL at goal. Continue to decrease carbohydrates and sugar. Continue rosuvastatin. (6) History of melanoma: Code(s): Z85.820 - Personal history of malignant melanoma of skin Category: Medical Plan: Followed by [facility]. (7) Uncontrolled type 2 diabetes mellitus with hyperglycemia: Code(s): E11.65 - Type 2 diabetes mellitus with hyperglycemia Category: Medical Plan: Chronically uncontrolled with A1c greater than 7%. I recommended starting insulin. Patient agreeable. Continue metformin, Mounjaro, restart Farxiga. Meet with senior health educator to review continuous glucose monitor use and insulin injection. After this start Tresiba 10 units nightly and decrease glipizide extended release 10 mg in the morning. Plan will be to taper off glipizide and titrate Tresiba. Reviewed treatment of hypoglycemia. Prescription for glucose tablets and written instructions provided to the patient. Patient has a backup glucometer. Plan She has a follow up scheduled with me in October. Orders: Referrals Diabetes Education Referral JOEL Mendoza E11.65 - Type 2 diabetes mellitus with hyperglycemia Medications: New insulin degludec (Tresiba FlexTouch U-100 insulin) 10 units (0.1 mL) subcut BEDTIME 15 mL 5RF JOEL Mendoza blood-glucose,hospitality workers,cont (FreeStyle Jamil 3 [place]) Use daily to monitor blood glucose levels continuously. 1 ea 0RF JOEL Mendoza blood-glucose sensor (FreeStyle Jamil 3 Plus Sensor device) Apply 1 new sensor every 15 days as directed to monitor blood glucose continuously. 2 ea 11RF JOEL Mendoza pen needle, diabetic As directed to inject insulin once daily 100 ea 5RF JOEL Mendoza glucose (Dex4 Glucose Quick Dissolve) until symptoms of low blood sugar are controlled 16 grams (4 x 4 gram) PO Q15M PRN 30 tabs 3RF hypoglycemia JOEL Mendoza Changed From glipizide ER 10 mg PO BID 180 tabs 3RF To glipizide ER 10 mg PO DAILY Jessika Hyde, HYDROGEN PLANT OPERATOR- Refilled dapagliflozin propanediol (Farxiga) 10 mg PO DAILY 90 tabs 3RF JOEL Mendoza
[2025-09-07 11:54] VITALS: BP 116/78; PULSE 106; RESP 16; TEMP 36.4; O2SAT 94; BMI 47.4
[2025-09-07 12:24] VITALS: PULSE 101; O2SAT 96
--- OUTSIDE RECORDS SUMMARY | 2025-09-07 13:55 | XMS_ITS | Clinical Summary ---
Author Organization [facility] Address [address] [place] [address] Phone Care Team Providers Care Architectural Design Professor Name Role Phone Shaina Davila MD Primary Care Provider [phone] Surgical History Surgery Date Site/Laterality Comments OTHER SURGICAL HISTORY PROCEDURE: MD EXCISION MALIGNANT LESION S/N/H/F/G 1.1-2.0 CM; COMMENT: [...] CMS/HCC V28) 1997 DX:Melanoma (HCC); COMMENT: labia SETIH (nonalcoholic steatohepatitis) 03/16/2015 DX:SETHI (nonalcoholic steatohepatitis) Family [...] Recently Relevant to Health Maintenance Care Teams Architectural Design Professor Relationship Specialty Start Date End Date Shaina Davila MD PCP - General 10/28/07
== END 2025-09-07 12:27 | disposition home or self-care (01) ==
LOC: HO.HMCFM 11:32
PROVIDERS: PCP Physician Assistant Medical; Visit Provider Physician Assistant Medical
DX: E11.65 Type 2 diabetes mellitus with hyperglycemia (principal); E66.01 Morbid (severe) obesity due to excess calories; Z68.42 Body mass index [BMI] 45.0-49.9, adult; E06.3 Autoimmune thyroiditis; R80.9 Proteinuria, unspecified; I10 Essential (primary) hypertension; E78.2 Mixed hyperlipidemia; Z85.820 Personal history of malignant melanoma of skin

== ENCOUNTER 2025-09-14 07:40 | Outpatient (AMB) | payer OTHER, SELFPAY ==
--- NOTE | 2025-09-14 08:26 | MHC.AMDMED ---
Intake Intake Visit Reasons: Type 2 diabetes mellitus with hyperglycemia Equal Opportunity Representative Required: No Accompanied by: Spouse Allergies No Known Allergies Allergy (Verified 09/07/25 11:52) HPI Comprehensive Diabetes Asmnt Most Recent Diabetes Results: Cholesterol, (<200) 178 mg/dL 07/28/25 HDL Cholesterol, (>40) 42 mg/dL 07/28/25 Triglycerides, (<150) 292 mg/dL H 07/28/25 Creatinine, (0.5-1.4) 0.65 mg/dL 07/28/25 BUN, (9-16) 14 mg/dL 07/28/25 Sodium, (135-145) 138 mmol/L 07/28/25 Potassium, (3.3-5.1) 3.8 mmol/L 07/28/25 Chloride, (96-108) 104 mmol/L 07/28/25 Carbon Dioxide, (22-29) 24 mmol/L 07/28/25 Calcium, (8.4-10.2) 9.9 mg/dL 07/28/25 AST, (5-31) 27 U/L 10/28/24 ALT, (0-31) 27 U/L 10/28/24 Total Protein, (6.5-8.0) 7.6 g/dL 10/28/24 Albumin, (3.5-5.0) 4.2 g/dL 10/28/24 [facility] Medical History (Updated 09/07/25 @ 13:41 by JOEL Mendoza) Uncontrolled type 2 diabetes mellitus with hyperglycemia Vaginal mass Acute respiratory disease Grade I diastolic dysfunction Abnormal echocardiogram Hypothyroidism Morbid obesity Microalbuminuria Essential hypertension Mixed hyperlipidemia History of melanoma Hepatic steatosis Screening for cardiovascular condition Type 2 diabetes mellitus Surgical History (Updated 07/08/24 @ 09:17 by JOEL Mendoza) History of melanoma excision Family History Maternal Grandfather Lung cancer Mother Type 2 diabetes mellitus Social History (Updated 09/07/25 @ 11:54 by Priya Davis CMA) Housing: House Alcohol intake: never Patient Tobacco Use Status: Never used Tobacco e-Cigarette/Vaping Use: Never Used Second Hand Smoke Exposure: No service: No Current occupational status: employed 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 Current occupational exposures/hazards: No Cognitive needs: No Hearing needs: No Vision needs: No Assessment & Plan Assessment & Plan (1) Type 2 diabetes mellitus: Code(s): E11.9 - Type 2 diabetes mellitus without complications Qualifiers: Diabetes mellitus snf insulin use: without snf use Diabetes mellitus complication status: with kidney complications Diabetes mellitus complication detail: with diabetic microalbuminuria Qualified Code(s): E11.29 - Type 2 diabetes mellitus with other diabetic kidney complication; R80.9 - Proteinuria, unspecified Plan: Patient at visit to set up an Zeptor Jamil 3+ with mauricio Instructed Pt on what CGM can and can't do CGM Can: Give Pt minute by minute reading of glucose levels Displays glucose trend arrows that represents the direction glucose levels are fluctuating Give insight on decisions about how to dose insulin CGM cannot: Improve glucose control on its own Completely eliminate the need for all finger sticks Make dosing decision for you CGM is the reading of glucose in the interstitial fluid not actual blood glucose, finger sticks are still necessary when Pt's symptom?s do not match sensor reading and if sensors prompts Pt to do a fingerstick Instructed patient sensors water proof you can shower, or swim do not submerge sensor in water for over 30 minutes Is sensor falls off cannot put back in you need to replace sensor, customer service number given to patient for sensor replacement Sensor placed on the back of right arm Patient left visit with sensor in warmup Reviewed how to interpret trend arrows Discussed lag time between finger stick and sensor data.? Instructed patient the importance of having blood glucometer for backup testing if needed Reviewed delay of CGM from fingersticks Reminded Pt that if symptoms do not match sensor still needs to check fingersticks. 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 from the pharmacy waiting on PA approval Patient Education: Patient was instructed and provided with demonstration of the following: Insulin action and Incretin Mimetics medication storage how to set up medication pen/or syringe and vial Handwashing insulin injection site rotation Site rotation recognizing hypertrophy Testing blood glucose Removing and disposing needle from insulin pen Safe disposal of sharps Target blood sugar Signs/ symptoms/treatment of hypoglycemia/hyperglycemia expiration of open insulin pen Patient verbalized understanding of education provided and was able to demonstrate proper use of inject into injection pillow Reviewed rule of 15s to treat glucose under 70 mg/dL All questions were answered and patient was advised to contact the office with any questions or concerns. Portions of this note were created using voice recognition software, please excuse any words or phrases that may have been misinterpreted. Patient Instructions: Patient instruction: CGM provides information on blood glucose control throughout the day, including hyperglycemia and hypoglycemia. ? Continue to monitor blood glucose as instructed. Follow nutrition guidelines provided. Report any discomfort promptly to health care provider. ?Stay well-hydrated. You can bathe ,shower, swim and exercise while wearing the glucose sensor. Do not submerge glucose sensor in water for more than 30 minutes. Coding Level of Care Code Est Pt Level 1 (21360) Diagnoses Type 2 diabetes mellitus with diabetic microalbuminuria, without long-term current use of insulin E11.29; R80.9 Diabetes mellitus snf insulin use: without termite technician use Diabetes mellitus complication status: with kidney complications Diabetes mellitus complication detail: with diabetic microalbuminuria
== END 2025-09-14 08:30 | disposition home or self-care (01) ==
LOC: HO.ENCR 07:40
PROVIDERS: PCP Physician Assistant Medical; Visit Provider Registered Nurse Diabetes Educator
DX: E11.29 Type 2 diabetes mellitus with other diabetic kidney complication (principal); R80.9 Proteinuria, unspecified
CPT/HCPCS: 99499